=== PATIENT | female | born 1950 | race Caucasian/White ===

== ENCOUNTER → 2017-03-07 | Outpatient (CLI) | payer OTHER ==
--- NOTE | 2017-03-07 14:32 | DIAGNOSTIC IMAGING REPORT ---
MRI OF THE LUMBAR SPINE WITHOUT IV CONTRAST CLINICAL HISTORY: Chronic low back pain. Perineal pain. COMPARISON STUDY: No priors. TECHNIQUE: MRI of the lumbar spine is performed utilizing various T1 and T2-weighted sequences in the axial and sagittal planes. IV contrast was not administered for this examination. FINDINGS: Lumbar spine: Marrow signal intensity is heterogeneous throughout. Vertebral body height is maintained throughout the lumbar spine. There is a mild chronic anterior wedge compression deformity of T12. There is 4 mm of anterolisthesis at L4-L5. Minimal anterolisthesis is also seen at L3-L4. Alignment is otherwise preserved. The transverse and spinous processes are intact as visualized. There is no evidence of spondylolysis. No destructive bony lesion is suspected. Findings suggest previous right hemilaminectomy at L5 and S1. Intervertebral discs: Degenerative disc desiccation is seen throughout the lumbar region. Moderate loss of height is identified at L3-L4. Only mild loss of height is seen at the remaining lumbar levels. Spinal cord: The visualized spinal cord is normal in morphology and signal intensity. The conus medullaris terminates at the level of L3. The nerve roots of the cauda equina are normal in morphology. L1-L2: Unremarkable. L2-L3: There is minimal posterior disc bulge with annular fissure. The central canal and neural foramina are widely patent. L3-L4: There is broad-based posterior disc bulge. In conjunction with hypertrophy of the ligamentum flavum and minimal anterolisthesis there is mild acquired compromise of the central canal at this level with a minimum AP diameter of 7.5 mm. There is mild bilateral subarticular stenosis. Facet arthropathy is of no consequence. The neural foramina are patent. L4-L5: There is posterior disc bulge with annular fissure. There is no significant acquired compromise of the central canal at this level. Facet arthropathy causes minimal bilateral neural foraminal stenosis. L5-S1: A facet synovial cyst arising from the left facet measures approximately 8 mm as seen on axial image #19. This effaces the left aspect of the thecal sac at L5, and impinges on the transiting left-sided nerve roots. The central canal is clear at the L5-S1 level. Facet arthropathy causes moderate left and minimal right neural foraminal stenosis at this level. No significant disc disease is seen. Sacrum: There are bilateral sacral insufficiency fractures. A Tarlov cyst at the level of S1-S2 measures 1.6 cm. Soft tissues: There is fatty atrophy of the paraspinous muscular tear. Bilateral ovarian follicles measure up to 1.7 cm. There is stool filling the rectosigmoid colon. IMPRESSION: 1. There are bilateral sacral insufficiency fractures with associated marrow edema. 2. Findings suggest previous right hemilaminectomy at L5 and S1. 3. Lumbosacral spondylosis as above. There is mild to moderate acquired compromise of the central canal at L3-L4. 4. A synovial cyst effaces the left aspect of the thecal sac at L5 and impinges on the transiting left-sided nerve roots. 5. See above discussion for detailed level by level analysis. 6. There is a chronic compression fracture of T12. 7. There are bilateral cystic foci in the pelvis, likely within the ovaries. This is an abnormal finding in this age group. Followup with a pelvic ultrasound is recommended for further assessment. Dictated: 03/07/2017 2:07 PM Transcribed: 03/07/2017 2:31 PM [facility] Electronically signed by: Miles Tan M.D. 03/07/2017 2:34 PM Dictated Date/Time: 03/07/2017 2:07 PM
== END | disposition home or self-care (01) ==
LOC: C.MRIBC 12:27
PROVIDERS: ATTEND Pain Medicine Interventional Pain Medicine
DX: M47.27 Other spondylosis with radiculopathy, lumbosacral region (principal); M53.3 Sacrococcygeal disorders, not elsewhere classified; M71.38 Other bursal cyst, other site

== ENCOUNTER 2025-03-05 11:10 | Inpatient (IN) ==
[2025-03-05] MEDS: SODIUM CHLORIDE 0.9% 500 ML IV ONE ×2 (11:47→12:54)
[2025-03-05 11:49] LABS: iSTAT Creatinine 0.6 mg/dl (0.6-1.3); iSTAT Hemoglobin 14.6 g/dl (12.0-16.0); iSTAT Ionized Calcium 1.05 mmol/l (1.12-1.32); iSTAT Potassium 3.2 mmol/L (3.3-5.0)
[2025-03-05 11:52] LABS: Hemoglobin 14.1 g/dl (12.0-16.0); Mean Corpuscular Hemoglobin 30.7 pg (25.0-34.0); Mean Corpuscular Hgb Conc 37.1 g/dL (32.0-36.0); Mean Corpuscular Volume 82.8 fL (80.0-100.0); Mean Platelet Volume 8.3 fL (9.4-12.4); Platelet Count 411 K/uL (130-400); RDW Coefficient of Variation 11.8 % (11.5-14.5); RDW Standard Deviation 35.2 fL (36.4-46.3); Red Blood Count 4.59 M/uL (4.20-5.40); White Blood Count 10.92 K/ul (4.8-10.8)
[2025-03-05] MEDS: OPTIRAY 320 125ml IV ONE (12:00)
[2025-03-05 12:24] LABS: Albumin Globulin Ratio 1.5 (0.9-2); Albumin Level 4.2 gm/dl (3.4-5.0); BUN Creatinine Ratio 27.3 (10-20); Bilirubin,Total 0.6 mg/dl (0.2-1.0); Calcium 8.6 mg/dl (8.6-10.3); Creatinine Clr Calc Pharmacy 84.6 ml/min; Globulin 2.8 gm/dl (2.5-4.0); Potassium 3.3 mmol/L (3.5-5.1); Troponin I High Sensitivity 20.5 pg/ml (0-14)
--- NOTE | 2025-03-05 12:25 | CT Scan Report ---
CT head/brain wo con CLINICAL HISTORY: Neuro deficit, acute, stroke suspected. TECHNIQUE: Multiple axial CT images of the head were obtained without contrast. A dose lowering tech nique was utilized adhering to the principles of ALARA. COMPARISON: None FINDINGS: No intracranial hemorrhage seen. No mass effect or midline shift. There is mild prominence of the ventricles out of proportion to the sulci, cerebral atrophy versus normal pressure hydrocephal us. There are mild chronic small vessel ischemic changes. No skull fractures seen. Visualized paranas al sinuses and mastoid air cells are clear. IMPRESSION: No acute findings. ACT 112: Negative or not required by law. The above report was generated using voice recognition software. It may contain grammatical, syntax o r spelling errors. Electronically signed by: Kody Ventura M.D. 03/05/2025 12:24 PM
[2025-03-05 12:34] LABS: Partial Thromboplastin Ratio 1.1; Partial Thromboplastin Time 29 Seconds (21-31); Prothrombin Time 10.8 Seconds (9.0-12.0)
--- NOTE | 2025-03-05 12:35 | CT Scan Report ---
CT angio neck with con, CT angio head w con CLINICAL HISTORY: stroke like sx, confusion. COMPARISON STUDY: None TECHNIQUE: Following the IV administration of 120 of Optiray, CT angiogram of the neck and brain was performed from the aortic arch to the skull base. Images are reviewed in the axial, sagittal, and cor onal planes. 3-D MIPS images are created and assessed. IV contrast was administered without complicat ion. All measurements were calculated based on NASCET criteria. A dose lowering technique was utiliz ed adhering to the principles of ALARA. CT DOSE: 1117.1 mGy.cm FINDINGS: There are minimal carotid bulb calcifications. No significant narrowing or occlusion seen a t the common or internal carotid arteries bilaterally. Left vertebral artery is dominant and the righ t vertebral artery is diminutive beyond PICA. No significant narrowing or occlusion seen at the verte bral arteries bilaterally. Basilar artery is widely patent. Anterior, middle, and posterior cerebral arteries are patent bilaterally. The cerebral venous sinuses opacify normally. IMPRESSION: No significant arterial narrowing or occlusion seen at the neck or brain. ACT 112: Negative or not required by law. The above report was generated using voice recognition software. It may contain grammatical, syntax o r spelling errors. Electronically signed by: Kody Ventura M.D. 03/05/2025 12:32 PM
--- NOTE | 2025-03-05 12:47 | Emergency Department Note ---
Impression & Plan Weakness, Acute hyponatremia, Leukocytosis, Elevated troponin, Hypokalemia ED Provider Note NAME: ALEKSANDAR FRANK AGE: 74 SEX: F : 1950 ARRIVES VIA: Walk-In INFORMANT: [Patient] ED PROVIDER(S): [Miles Arellano MD] CHIEF COMPLAINT: Stroke symptoms HISTORY OF PRESENT ILLNESS: The patient is a 74-year-old female whose had progressive symptoms for years to months although, in the last few days, things have markedly worsened. As per the , the patient's ability to answer questions has decreased over the last few days, her strength has decreased to the point where she can no longer stand on her own-she was able to walk around on her own just a few days ago. He states the weakness is definitely bilateral. Additionally, she has had urinary incontinence since yesterday. Because of the sudden worsening of her situation, she was brought for evaluation. No reported trauma, no fever. No cough or congestion. Patient does not have chest pain or abdominal pain. No history of previous CVA. PMHx/PSHx/Social Hx: See Below PHYSICAL EXAM: GENERAL: Patient is in no acute distress. HEENT: No acute trauma, normocephalic atraumatic, mucous membranes moist, no nasal congestion. NECK: No stridor, no adenopathy, no meningismus, trachea is midline. LUNGS: Clear to auscultation bilaterally, no wheeze, no rhonchi, breath sounds equal. HEART: Without murmurs gallops or rubs, regular rate and rhythm. ABDOMEN: Soft, nontender, no peritonitis. EXTREMITIES: No cyanosis, full range of motion of all the joints without pain or difficulty. NEUROLOGIC: Subtle right facial droop that resolves when asked to smile. No speech slur. No upper extremity drift or cerebellar dysfunction. The right leg does seem weaker than the left but both legs are clearly weak. SKIN: No jaundice, no diaphoresis. DIFFERENTIAL DIAGNOSIS: Electrolyte imbalance, stroke, intracranial bleeding, UTI, dehydration, among others. EMERGENCY DEPARTMENT PROCEDURES: MEDICAL DECISION MAKING: There is a very mild leukocytosis, this could be consistent with infection or the stress of her current situation. There was a normal hemoglobin. Platelet count slightly high at 411. There was no coagulopathy. Sodium was quite low at 116. Potassium was low at 3.2. No concerning liver enzyme elevation. ECG showed a sinus tachycardia, no ischemia. Cardiac enzyme testing x 1 was slightly elevated. This troponin elevation could be secondary to cardiac injury or chest mismatch given her current presentation. Urinalysis showed some dehydration, no obvious infection. Brain CT showed no acute bleed or mass effect. CT angio of the head and neck were performed, there was no significant stenosis, no clot. On exam, the patient had a very subtle right facial droop but this cleared with smiling. There was no speech slur. Certainly, the acute diffuse weakness and mental decline noted by family is likely from the severe hyponatremia. The patient was given IV saline for hydration and to help correct the hyponatremia. Given the profound weakness, given her mental status change, given the severe hyponatremia, admission is warranted. I spoke with the patient and her . I spoke to case management, the on- call hospitalist was consulted. Prior/Outside records/notes reviewed: None ECG per my interpretation: Indication was weakness. ECG shows a sinus tachycardia with a rate of 106. There is some baseline artifact seen. 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 There is no acute ST elevation, no PVCs. The QTc is 483. Continuous Cardiac Monitoring per my interpretation: An order was placed for continuous cardiac monitoring. The monitor shows a rate of 102 with sinus tachycardia. Imaging/x-ray results per my interpretation: Chest x-ray shows some chronic change, no pneumonia or CHF. Chronic Medical/Social conditions affecting care: Advanced age. Care/Management discussed with: Case management, the on-call hospitalist. Level of care consideration(s): After review of the information above and other included data: --I believe the patient requires escalation of care to admission DISPOSITION: Admission Past Med/Surg History Problem List (Updated 03/05/25 @ 15:35 by Miles Arellano MD) Hypokalemia (Acute) Elevated troponin (Acute) Leukocytosis (Acute) Acute hyponatremia (Acute) Weakness (Acute) Hyponatremia Rapidly progressive weakness Metabolic encephalopathy Acute hyponatremia Medical History Encounter for pre-operative examination Anxiety Depression Surgical History Hx of left cataract extraction History of colonoscopy S/P laminectomy "mid back" S/P tonsillectomy Family History Sister FHx: breast cancer Mother Breast cancer Family/Other Depression requiring ECT Grandmother (Paternal) Alzheimer disease Brother Ankylosing spondylitis Other No family history of adverse response to anesthesia Social History Smoking Status: Never smoker Second Hand Exposure: No; Do You Dip or Chew Tobacco: No; Hx Alcohol Use: No Hx Substance Use: No Preferred Language: Romanian Communication Ability: Effective 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 Beliefs That Will Affect Care: None Current Living Situation: Spouse Assistive Devices: Glasses Allergies Allergies Allergy/AdvReac Type Severity Reaction Status Date / Time No Known Allergies Allergy Verified 03/05/25 13:18 Home Meds Home Medications Medication Instructions Recorded Confirmed aripiprazole 5 mg tablet 5 mg PO QAM 05/29/24 03/05/25 desvenlafaxine succinate 100 mg 100 mg PO QAM 05/29/24 03/05/25 tablet,extended release 24 hr (Pristiq) mirtazapine 45 mg tablet 45 mg PO HS 05/29/24 03/05/25 berberine chloride 500 mg capsule 500 mg PO DAILY 03/05/25 03/05/25 cephalexin 500 mg capsule 500 mg PO QID 03/05/25 03/05/25 cholecalciferol (vitamin D3) 25 25 mcg PO DAILY 03/05/25 03/05/25 mcg (1,000 unit) tablet (Vitamin D3) cinnamon bark 500 mg capsule 500 mg PO DAILY 03/05/25 03/05/25 (Cinnamon) collagen,hydrolysate 500 mg-biotin 1 cap PO DAILY 03/05/25 03/05/25 800 mcg-ascorbic acid 50 mg capsule (Collagen 1500 Plus C) cyclosporine 0.05 % eye drops in a 1 drp ophthalmic (eye) BID 03/05/25 03/05/25 dropperette loteprednol etabonate 0.5 % eye See Rx Instructions .Route .COMPLEX 03/05/25 03/05/25 drops,suspension omega 3 350 mg-dha 235 mg-epa 90 1 cap PO DAILY 03/05/25 03/05/25 mg-fish oil 597 mg capsule,delay rel ([place]-3) raloxifene 60 mg tablet 60 mg PO QAM 03/05/25 03/05/25 resveratrol 50 mg capsule 50 mg PO DAILY 03/05/25 03/05/25 vitamin K2 40 mcg tablet 40 mcg PO DAILY 03/05/25 03/05/25 Results & Data (ED) Vital Signs Vital Signs - 24 hr 03/05/25 11:11 03/05/25 11:46 03/05/25 11:48 Temperature 37.1 C Temperature Source Temporal Artery Scan Pulse Rate 112 H Pulse Rate [Apical] 103 H Pulse Strength Normal Respiratory Rate 18 23 Respiratory Effort / Characteristics Non-Labored Spontaneous Respiratory Depth Normal Respiratory Pattern Regular Blood Pressure 151/89 H Blood Pressure [Left Arm] 152/87 H Blood Pressure Mean 109 Blood Pressure Mean [Left Arm] 108 Blood Pressure Position Sitting Pulse Oximetry 93 97 Oxygen Delivery Method Room Air Room Air Room Air Sepsis Recent Fever Within 48 Hours No Sepsis New/Unexplained Change in Mental Status No Sepsis Action Taken by Nursing No Action Required 03/05/25 11:48 03/05/25 12:20 03/05/25 12:29 Temperature Temperature Source Pulse Rate 103 H 104 H Pulse Rate [Apical] Pulse Strength Respiratory Rate 22 16 Respiratory Effort / Characteristics Respiratory Depth Respiratory Pattern Blood Pressure Blood Pressure [Left Arm] Blood Pressure Mean Blood Pressure Mean [Left Arm] Blood Pressure Position Pulse Oximetry Oxygen Delivery Method Room Air Sepsis Recent Fever Within 48 Hours Sepsis New/Unexplained Change in Mental Status Sepsis Action Taken by Nursing 03/05/25 12:30 03/05/25 12:32 03/05/25 12:43 Temperature Temperature Source Pulse Rate 104 H 104 H Pulse Rate [Apical] Pulse Strength Respiratory Rate 18 Respiratory Effort / Characteristics Respiratory Depth Respiratory Pattern Blood Pressure 150/87 H Blood Pressure [Left Arm] Blood Pressure Mean 101 Blood Pressure Mean [Left Arm] Blood Pressure Position Pulse Oximetry Oxygen Delivery Method Sepsis Recent Fever Within 48 Hours Sepsis New/Unexplained Change in Mental Status Sepsis Action Taken by Nursing 03/05/25 13:00 03/05/25 13:18 03/05/25 13:27 Temperature Temperature Source Pulse Rate 101 H 101 H 102 H Pulse Rate [Apical] Pulse Strength Respiratory Rate 27 H 19 Respiratory Effort / Characteristics Respiratory Depth Respiratory Pattern Blood Pressure 161/93 H Blood Pressure [Left Arm] Blood Pressure Mean 107 Blood Pressure Mean [Left Arm] Blood Pressure Position Pulse Oximetry Oxygen Delivery Method Sepsis Recent Fever Within 48 Hours Sepsis New/Unexplained Change in Mental Status Sepsis Action Taken by Nursing 03/05/25 13:30 03/05/25 14:00 03/05/25 14:12 Temperature Temperature Source Pulse Rate 98 H Pulse Rate [Apical] Pulse Strength Respiratory Rate 16 Respiratory Effort / Characteristics Respiratory Depth Respiratory Pattern Blood Pressure 147/82 H 146/80 H Blood Pressure [Left Arm] Blood Pressure Mean 96 97 Blood Pressure Mean [Left Arm] Blood Pressure Position Pulse Oximetry Oxygen Delivery Method Room Air Sepsis Recent Fever Within 48 Hours Sepsis New/Unexplained Change in Mental Status Sepsis Action Taken by Nursing 03/05/25 14:30 03/05/25 14:30 Temperature Temperature Source Pulse Rate 97 H Pulse Rate [Apical] Pulse Strength Respiratory Rate 22 Respiratory Effort / Characteristics Respiratory Depth Respiratory Pattern Blood Pressure 145/86 H Blood Pressure [Left Arm] Blood Pressure Mean 102 Blood Pressure Mean [Left Arm] Blood Pressure Position Pulse Oximetry Oxygen Delivery Method Sepsis Recent Fever Within 48 Hours Sepsis New/Unexplained Change in Mental Status Sepsis Action Taken by Longterm Medications Current Medication List: was personally reviewed by me Laboratory Data Attestation: I reviewed the patient's lab results. 03/05/25 11:30 03/05/25 11:30 Lab Results 03/05/25 03/05/25 03/05/25 Range/Units 11:30 11:32 11:37 WBC 10.92 H (4.8-10.8) K/ul RBC 4.59 (4.20-5.40) M/uL Hgb 14.1 (12.0-16.0) g/dl POC Hgb 14.6 (12.0-16.0) g/dl Hct 38.0 (37.0-47.0) % POC Hct 43 (37-47) % MCV 82.8 (80.0-100.0) fL MCH 30.7 (25.0-34.0) pg MCHC 37.1 H (32.0-36.0) g/dL RDW Std Deviation 35.2 L (36.4-46.3) fL RDW Coeff of Esperanza 11.8 (11.5-14.5) % Plt Count 411 H (130-400) K/uL MPV 8.3 L (9.4-12.4) fL PT 10.8 (9.0-12.0) Seconds INR 1.0 (0.9-1.1) APTT 29 (21-31) Seconds PTT Ratio 1.1 POC Sodium 116 L* (135-144) mmol/L Sodium 117 L* (136-145) mmol/L POC Potassium 3.2 L (3.3-5.0) mmol/L Potassium 3.3 L (3.5-5.1) mmol/L POC Chloride 80 L (101-112) mmol/L Chloride 82 L (98-107) mmol/L Carbon Dioxide 25 (21-32) mmol/L POC Total CO2 24 (24-31) mmol/L Anion Gap 10 (3-11) POC Anion Gap 17.0 (16-25) mmol/L POC BUN 15 (7-18) mg/dl BUN 15 (6-23) mg/dl Creatinine 0.55 L (0.6-1.2) mg/dl POC Creatinine 0.6 (0.6-1.3) mg/dl Est Cr Clr Drug Dosing 84.6 ml/min eGFR 94.94 BUN/Creatinine Ratio 27.3 H (10-20) Glucose 124 H (70-99(Fasting)) mg/dl POC Glucose 134 H (70-99) mg/dl POC Glucose (other) 125 H (70-99) mg/dl Osmolality Cancelled Calcium 8.6 (8.6-10.3) mg/dl POC Ioniz Calcium Dayana 1.05 L (1.12-1.32) mmol/l Magnesium 2.0 (1.7-2.4) mg/dl Total Bilirubin 0.6 (0.2-1.0) mg/dl AST 71 H (13-39) U/L ALT 49 (7-52) U/L Alkaline Phosphatase 61 (34-104) U/L Troponin I High Sens 20.5 H (0-14) pg/ml Total Protein 7.0 (6.0-8.3) gm/dl Albumin 4.2 (3.4-5.0) gm/dl Globulin 2.8 (2.5-4.0) gm/dl Albumin/Globulin Ratio 1.5 (0.9-2) Urine Color Urine Appearance (Clear) Urine pH (4.5-7.5) Ur Specific [place] (1.000-1.030) Urine Protein (Negative) Urine Glucose (UA) (Negative) Urine Ketones (Negative) Urine Blood (Negative) Urine Nitrite (Negative) Urine Bilirubin (Negative) Urine Urobilinogen (Negative) Ur Leukocyte Esterase (Negative) Urine WBC (Auto) (0-5) /hpf Urine RBC (Auto) (0-2) /hpf U Hyaline Cast (Auto) (0-2) /lpf U Epithel Cells (Auto) (0-2) /hpf Urine Bacteria (Auto) (None Seen) Urine Osmolality (500-800) mOsm/kg Ur Random Sodium mmol/L Urine Comment 03/05/25 03/05/25 Range/Units 12:26 13:05 WBC (4.8-10.8) K/ul RBC (4.20-5.40) M/uL Hgb (12.0-16.0) g/dl POC Hgb (12.0-16.0) g/dl Hct (37.0-47.0) % POC Hct (37-47) % MCV (80.0-100.0) fL MCH (25.0-34.0) pg MCHC (32.0-36.0) g/dL RDW Std Deviation (36.4-46.3) fL RDW Coeff of [place]peranza (11.5-14.5) % Plt Count (130-400) K/uL MPV (9.4-12.4) fL PT (9.0-12.0) Seconds INR (0.9-1.1) APTT (21-31) Seconds PTT Ratio POC Sodium (135-144) mmol/L Sodium (136-145) mmol/L POC Potassium (3.3-5.0) mmol/L Potassium (3.5-5.1) mmol/L POC Chloride (101-112) mmol/L Chloride (98-107) mmol/L Carbon Dioxide (21-32) mmol/L POC Total CO2 (24-31) mmol/L Anion Gap (3-11) POC Anion Gap (16-25) mmol/L POC BUN (7-18) mg/dl BUN (6-23) mg/dl Creatinine (0.6-1.2) mg/dl POC Creatinine (0.6-1.3) mg/dl Est Cr Clr Drug Dosing ml/min eGFR BUN/Creatinine Ratio (10-20) Glucose (70-99(Fasting)) mg/dl POC Glucose (70-99) mg/dl POC Glucose (other) (70-99) mg/dl Osmolality 243 L Calcium (8.6-10.3) mg/dl POC Ioniz Calcium [place] (1.12-1.32) mmol/l Magnesium (1.7-2.4) mg/dl Total Bilirubin (0.2-1.0) mg/dl AST (13-39) U/L ALT (7-52) U/L Alkaline Phosphatase (34-104) U/L Troponin I High Sens (0-14) pg/ml Total Protein (6.0-8.3) gm/dl Albumin (3.4-5.0) gm/dl Globulin (2.5-4.0) gm/dl Albumin/Globulin Ratio (0.9-2) Urine Color Yellow Urine Appearance Clear (Clear) Urine pH 7.0 (4.5-7.5) Ur Specific [place] > 1.045 H (1.000-1.030) Urine Protein 1+ H (Negative) Urine Glucose (UA) Negative (Negative) Urine Ketones 1+ H (Negative) Urine Blood Negative (Negative) Urine Nitrite Negative (Negative) Urine Bilirubin Negative (Negative) Urine Urobilinogen Negative (Negative) Ur Leukocyte Esterase Negative (Negative) Urine WBC (Auto) 0-5 (0-5) /hpf Urine RBC (Auto) 3-5 H (0-2) /hpf U Hyaline Cast (Auto) 0-2 (0-2) /lpf U Epithel Cells (Auto) 0-2 (0-2) /hpf Urine Bacteria (Auto) None Seen (None Seen) Urine Osmolality 396 L (500-800) mOsm/kg Ur Random Sodium 27 mmol/L Urine Comment Administered Medications Discontinued Medications Sodium Chloride (Nss) 500 mls @ 999 mls/hr IV .Q31M ONE Stop: 03/05/25 12:11 Last Infusion: 03/05/25 13:16 Dose: Infused Documented By: Admin: 03/05/25 11:47 Dose: 999 mls/hr Documented By: JOSS Sodium Chloride (Nss) 500 mls @ 999 mls/hr IV .Q31M ONE Stop: 03/05/25 13:12 Last Admin: 03/05/25 12:54 Dose: 999 mls/hr Documented By: JOSS Ioversol (Optiray 320 125ml) 118 ml IV ONCE ONE Stop: 03/05/25 12:01 Last Admin: 03/05/25 12:00 Dose: 118 ml Documented By: COURTNEY Imaging Data Radiologist's Impression: Chest X-Ray 03/05/25 11:36 XR chest 1V portable CLINICAL HISTORY: stroke alert COMPARISON STUDY: None FINDINGS: Heart size and pulmonary vasculature are normal. There is a small hiatal hernia. No consolidation or pleural effusion. No pneumothorax. There is a possible small amount of contrast infiltration at the soft tissues of the right arm. IMPRESSION: Possible contrast infiltration at the right arm. No other acute findings seen. ACT 112: Negative or not required by law. Electronically signed by: Kody Ventura M.D. 03/05/2025 12:[address] 03/05/25 11:36 CT head/brain wo con CLINICAL HISTORY: Neuro deficit, acute, stroke suspected. TECHNIQUE: Multiple axial CT images of the head were obtained without contrast. A dose lowering technique was utilized adhering to the principles of ALARA. COMPARISON: None FINDINGS: No intracranial hemorrhage seen. No mass effect or midline shift. There is mild prominence of the ventricles out of proportion to the sulci, cerebral atrophy versus normal pressure hydrocephalus. There are mild chronic small vessel ischemic changes. No skull fractures seen. Visualized paranasal sinuses and mastoid air cells are clear. IMPRESSION: No acute findings. ACT 112: Negative or not required by law. The above report was generated using voice recognition software. It may contain grammatical, syntax or spelling errors. Electronically signed by: Kody Ventura M.D. 03/05/2025 12:24 PM Head CTA 03/05/25 11:40 CT angio neck with con, CT angio head w con CLINICAL HISTORY: stroke like sx, confusion. COMPARISON STUDY: None TECHNIQUE: Following the IV administration of 120 of Optiray, CT angiogram of the neck and brain was performed from the aortic arch to the skull base. Images are reviewed in the axial, sagittal, and coronal planes. 3-D MIPS images are created and assessed. IV contrast was administered without complication. All measurements were calculated based on NASCET criteria. A dose lowering technique was utilized adhering to the principles of ALARA. CT DOSE: 1117.1 mGy.cm FINDINGS: There are minimal carotid bulb calcifications. No significant narrowing or occlusion seen at the common or internal carotid arteries bilaterally. Left vertebral artery is dominant and the right vertebral artery is diminutive beyond PICA. No significant narrowing or occlusion seen at the vertebral arteries bilaterally. Basilar artery is widely patent. Anterior, middle, and posterior cerebral arteries are patent bilaterally. The cerebral venous sinuses opacify normally. IMPRESSION: No significant arterial narrowing or occlusion seen at the neck or brain. ACT 112: Negative or not required by law. The above report was generated using voice recognition software. It may contain grammatical, syntax or spelling errors. Electronically signed by: Kody Ventura M.D. 03/05/2025 12:32 PM Neck CTA 03/05/25 11:40 CT angio neck with con, CT angio head w con CLINICAL HISTORY: stroke like sx, confusion. COMPARISON STUDY: None TECHNIQUE: Following the IV administration of 120 of Optiray, CT angiogram of the neck and brain was performed from the aortic arch to the skull base. Images are reviewed in the axial, sagittal, and coronal planes. 3-D MIPS images are created and assessed. IV contrast was administered without complication. All measurements were calculated based on NASCET criteria. A dose lowering technique was utilized adhering to the principles of ALARA. CT DOSE: 1117.1 mGy.cm FINDINGS: There are minimal carotid bulb calcifications. No significant narrowing or occlusion seen at the common or internal carotid arteries bilaterally. Left vertebral artery is dominant and the right vertebral artery is diminutive beyond PICA. No significant narrowing or occlusion seen at the vertebral arteries bilaterally. Basilar artery is widely patent. Anterior, middle, and posterior cerebral arteries are patent bilaterally. The cerebral venous sinuses opacify normally. IMPRESSION: No significant arterial narrowing or occlusion seen at the neck or brain. ACT 112: Negative or not required by law. The above report was generated using voice recognition software. It may contain grammatical, syntax or spelling errors. Electronically signed by: Kody Ventura M.D. 03/05/2025 12:32 PM Discharge Plan Visit Data Chief Complaint: Stroke/CVA Symptoms Stated Complaint: MOBILITY ISSUES,SPEAKING ISSUES ED Provider: Miles Arellano Discharge Problem: Weakness, Acute hyponatremia, Leukocytosis, Elevated troponin, Hypokalemia Patient Disposition: Admitted As Inpatient Condition: Fair Forms Stand Alone Forms: My [facility] Prescriptions Prescriptions: No Action aripiprazole 5 mg Tablet 5 mg PO QAM desvenlafaxine succinate [Pristiq] 100 mg Tablet Extended Release 24 Hr 100 mg PO QAM mirtazapine 45 mg Tablet 45 mg PO HS cephalexin 500 mg capsule 500 mg PO QID raloxifene 60 mg tablet 60 mg PO QAM loteprednol etabonate 0.5 % drops,suspension See Rx Instructions .ROUTE .COMPLEX Rx Instructions: Start Date 02/12/25. Instill 1 drop into left eye QID x 7 days; then TID x 7 days; then BID x 7 days; then QD x 7 days cyclosporine 0.05 % dropperette 1 drp ophthalmic (eye) BID cinnamon bark [Cinnamon] 500 mg Capsule 500 mg PO DAILY cholecalciferol (vitamin D3) [Vitamin D3] 25 mcg (1,000 unit) Tablet 25 mcg PO DAILY resveratrol 50 mg Capsule 50 mg PO DAILY vitamin K2 40 mcg Tablet 40 mcg PO DAILY [place]-3 350 mg-235 mg- 90 mg-597 mg Capsule,Delayed Release(Dr/Ec) 1 cap PO DAILY Collagen 1500 Plus C 500 mg-800 mcg- 50 mg Capsule 1 cap PO DAILY berberine chloride 500 mg Capsule 500 mg PO DAILY Referrals Referrals: Lenin Price MD [Primary Care Provider] - Discharge Problem: Leukocytosis Qualifiers: Leukocytosis type: unspecified Qualified Code(s): D72.829 - Elevated white blood cell count, unspecified
--- NOTE | 2025-03-05 13:00 | XRay Report ---
XR chest 1V portable CLINICAL HISTORY: stroke alert COMPARISON STUDY: None FINDINGS: Heart size and pulmonary vasculature are normal. There is a small hiatal hernia. No consoli dation or pleural effusion. No pneumothorax. There is a possible small amount of contrast infiltratio n at the soft tissues of the right arm. IMPRESSION: Possible contrast infiltration at the right arm. No other acute findings seen. ACT 112: Negative or not required by law. Electronically signed by: Kody Ventura M.D. 03/05/2025 12:59 PM
[2025-03-05 13:31] LABS: Appearance Urine Clear (Clear); Bacteria Urine Automated None Seen (None Seen); Bilirubin Urine Negative (Negative); Blood Urine Negative (Negative); Cast Urine Automated 0-2 /lpf (0-2); Color Urine Yellow; Epithelial Cell Urine Auto 0-2 /hpf (0-2); Glucose Urine UA Negative (Negative); Ketones Urine 1+ (Negative); Leukocyte Esterase Urine Negative (Negative); Nitrite Urine Negative (Negative); Protein Urine 1+ (Negative); Specific Gravity Urine > 1.045 (1.000-1.030); Urobilinogen Urine Negative (Negative); WBC Urine Automated 0-5 /hpf (0-5)
--- NOTE | 2025-03-05 13:37 | History & Physical Report ---
Date of Service March 05, 2025 Assessment & Plan (1) Acute hyponatremia: (2) Metabolic encephalopathy: (3) Rapidly progressive weakness: (4) Hyponatremia: (5) Depression: (6) Anxiety: Plan This is a 74-year-old female who has a significant past medical history of prediabetes, senile osteoporosis, major depressive disorder and generalized anxiety disorder who presents to ED secondary to worsening generalized weakness, increased confusion and bladder incontinence over the last 36 hours. #Acute Hyponatremia #Metabolic encephalopathy admit to PCU Discussed with nephrology Dr. Alcantar, will obtain BMP stat now, FR 1500ml for now Start [id number] bid pt has had 1L of IVF in ED unknown cause, possible SIADH?, no new medication changes, has been stable on psych meds for years, last sodium in 2023 was unremarkable urine sodium 27, urine osm 396, serum osm 243 obtain blood cultures, r/o infection, cxr, ua okay Repeat Na at 1500 showed sodium increase from 116-[address] 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 There are mild chronic small vessel ischemic changes will obtain MRI Pt has parkinsonian features and reports shuffling gait initially along with tremors that have now progressed to inability to walk ? parkinsonism She certainly also has sx that could make NPH favorable will consult neurology for their assistance in appropriate diagnosis await MRI results will obtain TSH, Vitamin b12, Nh3, rpr #Hypokalemia: K 3.3, replete #Elevated troponin: suspect demand in setting of acute illness, will trend for completeness #Healing posterior calcaneal fracture, left she has seen [facility] on 02/27, had XR started on keflex through 03/09 due to L soft tissue swelling reports improvement of sx after initiation of antibiotics, will compete course #Depression with anxiety pt has battled this for several years established with Dr. Dickson in 2016, initially multiple med changes, but has been stable for several years on current regimen on Pristiq, abilify, mirtazapine #DVT ppx: SQ Lovenox DNR/DNI PCP: Albert Dispo: admit to PCU, will need PT/OT evals when sodium levels improved Pt was seen and examined in collaboration with Dr. Hernandez, please see addendum I spent a total of 76 minutes coordinating, documenting and providing care for this patient excluding time spent in the performance of separately billed services or time spent by another provider/QHP. History of Present Illness Chief Complaint: Worsening weakness/confusion. Primary Care Provider: Lenin Price MD This is a 74-year-old female who has a significant past medical history of prediabetes, senile osteoporosis, major depressive disorder and generalized anxiety disorder who presents to ED secondary to worsening generalized weakness, increased confusion and bladder incontinence over the last 36 hours. 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 History is obtained from ED provider, at bedside who is a retired [facility] pediatric surgeon and sister at bedside. It is noted that over the last 18 months patient has had a generalized decline cognition and function. She has been having worsening memory loss, confusion, and general physical decline over the last several months. She has been has noted a crescendo like decline over the last few months. She follows Dr. Dickson for her psych diagnoses. She otherwise does not visit her medical provider other than yearly. Her provides detailed course. She has had no recent illness, change in medication, no recent GI illness. She did see orthopedics on 02/27 due to L foot pain. Imaging showed healing posterior calcaneal stress fracture. There was concern for possible soft tissue swelling and she was started on keflex; however, notes no clear indication of infection. After starting keflex her sx improved. wrote detailed hx regarding changes over the past few years, Approximately 3. She has begun to walk with a shuffling gait at first. She does have some tremor in her hands but tends to occur when using them like buttoning up one of her favorite shirts, that is actually her 's. Her mentation has been becoming markedly worse over the past 6 weeks, but in the past week she struggled to be able to articulate thought and was unable to speak at all. Physically prior to stress fx she was able to ambulate on own, but now having difficulty doing that to the point the is unable to manage her at home. Over the last 36hrs notes progressive decline. At baseline pt can typica lly ambulate with assistance; however today she was not able to walk at all due to leg weakness. She was unable to get off of couch last night that resulted in her losing control of her bladder. She has not had any bowel incontinence. does not feel she has had a fever, diarrhea, n/v. She eats fairly well. She drinks 8-10 8oz bottles daily, approx. Surgical hx includes L4-5 facets resected for hypertrophic osteophytes - early , Partial face lift in , mandibular advancement with b/l osteotomies with metal wire Again follows Dr. Dickson with psych since 2016, initially went through a series of med adjustments but she has been stable on her regimen as of late. Allergies Allergy/AdvReac Type Severity Reaction Status Date / Time No Known Allergies Allergy Verified 03/05/25 13:18 Home Medications Medication Instructions Recorded Confirmed Type aripiprazole 5 mg tablet 5 mg PO QAM 05/29/24 03/05/25 History desvenlafaxine succinate 100 mg 100 mg PO QAM 05/29/24 03/05/25 History tablet,extended release 24 hr (Pristiq) mirtazapine 45 mg tablet 45 mg PO HS 05/29/24 03/05/25 History berberine chloride 500 mg capsule 500 mg PO DAILY 03/05/25 03/05/25 History cephalexin 500 mg capsule 500 mg PO QID 03/05/25 03/05/25 History cholecalciferol (vitamin D3) 25 25 mcg PO DAILY 03/05/25 03/05/25 History mcg (1,000 unit) tablet (Vitamin D3) cinnamon bark 500 mg capsule 500 mg PO DAILY 03/05/25 03/05/25 History (Cinnamon) collagen,hydrolysate 500 mg-biotin 1 cap PO DAILY 03/05/25 03/05/25 History 800 mcg-ascorbic acid 50 mg capsule (Collagen 1500 Plus C) cyclosporine 0.05 % eye drops in a 1 drp ophthalmic (eye) BID 03/05/25 03/05/25 History dropperette loteprednol etabonate 0.5 % eye See Rx Instructions .Route .COMPLEX 03/05/25 03/05/25 History drops,suspension omega 3 350 mg-dha 235 mg-epa 90 1 cap PO DAILY 03/05/25 03/05/25 History mg-fish oil 597 mg capsule,delay rel (Madison-3) raloxifene 60 mg tablet 60 mg PO QAM 03/05/25 03/05/25 History resveratrol 50 mg capsule 50 mg PO DAILY 03/05/25 03/05/25 History vitamin K2 40 mcg tablet 40 mcg PO DAILY 03/05/25 03/05/25 History Past Med/Surg History Problem List (Updated 03/05/25 @ 15:35 by Miles Arellano MD) Hypokalemia (Acute) Elevated troponin (Acute) Leukocytosis (Acute) Acute hyponatremia (Acute) Weakness (Acute) Hyponatremia Rapidly progressive weakness Metabolic encephalopathy Acute hyponatremia Medical History Encounter for pre-operative examination Anxiety Depression Surgical History Hx of left cataract extraction History of colonoscopy S/P laminectomy "mid back" S/P tonsillectomy Family History Sister FHx: breast cancer Mother Breast cancer Family/Other Depression requiring ECT Grandmother (Paternal) Alzheimer disease Brother Ankylosing spondylitis Other No family history of adverse response to anesthesia Social History Smoking Status: Never smoker Second Hand Exposure: No; Do You Dip or Chew Tobacco: No; Hx Alcohol Use: No Hx Substance Use: No Preferred Language: Georgian Communication Ability: Effective Transmission System Operator Required: No Beliefs That Will Affect Care: None Current Living Situation: Spouse Assistive Devices: Glasses Review of Systems Review of Systems: Unobtainable due to cognitive status Physical Exam Physical Exam: please refer to Dr. Hernandez addendum for physical exam findings. Results & Data Results & Data Vital Signs (Past 12 Hours) Vital Signs Temp Pulse Pulse Resp BP BP Pulse Ox 03/05/25 13:00 101 H 161/93 H 03/05/25 12:43 104 H 03/05/25 12:32 104 H 18 03/05/25 12:30 150/87 H 03/05/25 12:29 104 H 16 03/05/25 12:20 103 H 22 03/05/25 11:48 03/05/25 11:48 103 H 23 152/87 H 97 03/05/25 11:46 03/05/25 11:11 37.1 C 112 H 18 151/89 H 93 O2 Del Method 03/05/25 13:00 03/05/25 12:43 03/05/25 12:32 03/05/25 12:30 03/05/25 12:29 03/05/25 12:20 03/05/25 11:48 Room Air 03/05/25 11:48 Room Air 03/05/25 11:46 Room Air 03/05/25 11:11 Room Air Laboratory Results I have independently reviewed and interpreted patient's admitting labs including CBC, CMP, PTT, PT/INR, mag and troponin. Also urine, serum osm studies reviewed, urine sodium Diagnostic Findings Chest X-Ray 03/05/25 11:36 XR chest 1V portable CLINICAL HISTORY: stroke alert COMPARISON STUDY: None FINDINGS: Heart size and pulmonary vasculature are normal. There is a small hiatal hernia. No consolidation or pleural effusion. No pneumothorax. There is a possible small amount of contrast infiltration at the soft tissues of the right arm. IMPRESSION: Possible contrast infiltration at the right arm. No other acute findings seen. ACT 112: Negative or not required by law. Electronically signed by: Kody Ventura M.D. 03/05/2025 12:[address] 03/05/25 11:36 CT head/brain wo con CLINICAL HISTORY: Neuro deficit, acute, stroke suspected. TECHNIQUE: Multiple axial CT images of the head were obtained without contrast. A dose lowering technique was utilized adhering to the principles of ALARA. COMPARISON: None FINDINGS: No intracranial hemorrhage seen. No mass effect or midline shift. There is mild prominence of the ventricles out of proportion to the sulci, cerebral atrophy versus normal pressure hydrocephalus. There are mild chronic small vessel ischemic changes. No skull fractures seen. Visualized paranasal sinuses and mastoid air cells are clear. IMPRESSION: No acute findings. ACT 112: Negative or not required by law. The above report was generated using voice recognition software. It may contain grammatical, syntax or spelling errors. Electronically signed by: Kody Ventura M.D. 03/05/2025 12:24 PM Head CTA 03/05/25 11:40 CT angio neck with con, CT angio head w con CLINICAL HISTORY: stroke like sx, confusion. COMPARISON STUDY: None TECHNIQUE: Following the IV administration of 120 of Optiray, CT angiogram of the neck and brain was performed from the aortic arch to the skull base. Images are reviewed in the axial, sagittal, and coronal planes. 3-D MIPS images are created and assessed. IV contrast was administered without complication. All measurements were calculated based on NASCET criteria. A dose lowering technique was utilized adhering to the principles of ALARA. CT DOSE: 1117.1 mGy.cm FINDINGS: There are minimal carotid bulb calcifications. No significant narrowing or occlusion seen at the common or internal carotid arteries bilaterally. Left vertebral artery is dominant and the right vertebral artery is diminutive beyond PICA. No significant narrowing or occlusion seen at the vertebral arteries bilaterally. Basilar artery is widely patent. Anterior, middle, and posterior cerebral arteries are patent bilaterally. The cerebral venous sinuses opacify normally. IMPRESSION: No significant arterial narrowing or occlusion seen at the neck or brain. ACT 112: Negative or not required by law. The above report was generated using voice recognition software. It may contain grammatical, syntax or spelling errors. Electronically signed by: Kody Ventura M.D. 03/05/2025 12:32 PM Neck CTA 03/05/25 11:40 CT angio neck with con, CT angio head w con CLINICAL HISTORY: stroke like sx, confusion. COMPARISON STUDY: None TECHNIQUE: Following the IV administration of 120 of Optiray, CT angiogram of the neck and brain was performed from the aortic arch to the skull base. Images are reviewed in the axial, sagittal, and coronal planes. 3-D MIPS images are created and assessed. IV contrast was administered without complication. All measurements were calculated based on NASCET criteria. A dose lowering technique was utilized adhering to the principles of ALARA. CT DOSE: 1117.1 mGy.cm FINDINGS: There are minimal carotid bulb calcifications. No significant narrowing or occlusion seen at the common or internal carotid arteries bilaterally. Left vertebral artery is dominant and the right vertebral artery is diminutive beyond PICA. No significant narrowing or occlusion seen at the vertebral arteries bilaterally. Basilar artery is widely patent. Anterior, middle, and posterior cerebral arteries are patent bilaterally. The cerebral venous sinuses opacify normally. IMPRESSION: No significant arterial narrowing or occlusion seen at the neck or brain. ACT 112: Negative or not required by law. The above report was generated using voice recognition software. It may contain grammatical, syntax or spelling errors. Electronically signed by: Kody Ventura M.D. 03/05/2025 12:32 PM Medications Administered Medication List Discontinued Medications Sodium Chloride (Nss) 500 mls @ 999 mls/hr IV .Q31M ONE Stop: 03/05/25 12:11 Last Infusion: 03/05/25 13:16 Dose: Infused Documented By: Admin: 03/05/25 11:47 Dose: 999 mls/hr Documented By: JOSS Sodium Chloride (Nss) 500 mls @ 999 mls/hr IV .Q31M ONE Stop: 03/05/25 13:12 Last Admin: 03/05/25 12:54 Dose: 999 mls/hr Documented By: JOSS Ioversol (Optiray 320 125ml) 118 ml IV ONCE ONE Stop: 03/05/25 12:01 Last Admin: 03/05/25 12:00 Dose: 118 ml Documented By: COURTNEY ECG Additional Comments: I have independently reviewed and interpreted patient's admitting EKG which revealed: ST 106, no st or t wave change, qtc 483ms COVID-19 Results Results COVID-19 Adm Lab Results: RBC 4.59 M/uL (4.20-5.40) 03/05/25 WBC 10.92 K/ul (4.8-10.8) H 03/05/25 Hgb 14.1 g/dl (12.0-16.0) 03/05/25 Hct 38.0 % (37.0-47.0) 03/05/25 Plt Count 411 K/uL (130-400) H 03/05/25 Na 119 mmol/L (136-145) L* 03/05/25 Cl 86 mmol/L (98-107) L 03/05/25 CO2 24 mmol/L (21-32) 03/05/25 Anion Gap 9 (3-11) 03/05/25 BUN 12 mg/dl (6-23) 03/05/25 Creatinine 0.49 mg/dl (0.6-1.2) L 03/05/25 BUN/Creatinine Ratio 24.5 (10-20) H 03/05/25 Glucose Level 92 mg/dl (70-99(Fasting)) 03/05/25 Ca 7.8 mg/dl (8.6-10.3) L 03/05/25 Total Bilirubin 0.6 mg/dl (0.2-1.0) 03/05/25 AST/SGOT 71 U/L (13-39) H 03/05/25 ALT/SGPT 49 U/L (7-52) 03/05/25 Alkaline Phosphatase 61 U/L (34-104) 03/05/25 Total Protein 7.0 gm/dl (6.0-8.3) 03/05/25 Albumin 4.2 gm/dl (3.4-5.0) 03/05/25 Globulin 2.8 gm/dl (2.5-4.0) 03/05/25 Albumin/Globulin Ratio 1.5 (0.9-2) 03/05/25 PTT 29 Seconds (21-31) 03/05/25 INR 1.0 (0.9-1.1) 03/05/25 Chest X-Ray 03/05/25 Code Status & VTE Plan Code Status DNR/DNI Supervising Physician Co-Signing Physician Notes Attending Addendum: Case reviewed with the advanced practitioner. I have personally performed a history and physical examination on the patient. I have reviewed the advanced practitioner's documentation on the date of service referenced in note, and I agree with, and take responsibility for the plan of care. please refer to her notes for full details patient seen and examined, records reviewed by myself as well on exam, patient seen resting in bed, comfortable awake, alert, oriented x 1-2 pleasantly confused no chest pain, dyspnea, palpitations, dizziness no headache, nausea, abdominal pain, nausea no other symptoms VS noted and reviewed oriented x 1-2 , not in distress, speaks in sentences with no effort nor accessory muscle use normal rate, regular rhythm, no murmurs clear breath sounds bilaterally non distended, soft, nontender no bipedal edema, erythema, warmth pleasantly confused, no other new neuro deficits all labs, imaging noted and reviewed ASSESSMENT AND PLAN> CONFUSION, GENERALIZED WEAKNESS, HYPONATREMIA PROGRESSIVE COGNITIVE DECLINE possible underlying Parkinson Disease, r/o NPH Brain MRI ordered TSH, Vit D, Vit B12, Lyme screen Neuro consulted discussed with Nephro possible SIADH recommend IV NSS, Lasix, Urea serial Na checks Ethan Hernandez MD other diagnoses and plan of care as per advanced practitioner's notes I spent a total of 50 minutes coordinating, documenting, and providing care for this patient, excluding time spent in the performance of separately billed services or time spent by another provider/QHP. Ethan Hernandez MD
[2025-03-05 15:56] LABS: BUN Creatinine Ratio 24.5 (10-20); Calcium 7.8 mg/dl (8.6-10.3); Troponin I High Sensitivity 24.1 pg/ml (0-14)
[2025-03-05 16:13] LABS: Thyroid Stimulating Hormone 1.268 uIu/ml (0.300-4.500)
[2025-03-05] MEDS ORDERED: ONDANSETRON INJ 2 MG/ML 2 ML VIAL IV PRN (16:22)
[2025-03-05] MEDS ORDERED: POLYETHYLENE (MIRALAX) 17 GM PACK PO PRN (16:22)
[2025-03-05] MEDS: SODIUM CHLORIDE 0.9% 500 ML IV SCH (16:40)
[2025-03-05] MEDS: POTASSIUM CHLORIDE CRTAB 20 MEQ TABCR PO STA (16:42)
[2025-03-05] MEDS: cephALEXin 500 MG CAP PO SCH (18:00)
[2025-03-05] MEDS: POTASSIUM CHLORIDE CRTAB 20 MEQ TABCR PO ONE (21:13)
[2025-03-05] MEDS: UREA (UREA-NA) 15 GM PACK PO SCH (21:14)
[2025-03-05] MEDS: ENOXAPARIN INJ 40 MG/0.4 ML SYR SQ SCH (21:14)
[2025-03-05] MEDS: MIRTAZAPINE SOLTAB 15 MG PO SCH (21:15)
[2025-03-05] MEDS: SODIUM CHLORIDE 1 GM TABLET PO SCH (21:17)
[2025-03-05] MEDS: FUROSEMIDE INJ 20 MG/2 ML VIAL IV SCH (21:20)
[2025-03-05] MEDS: ARTIFICIAL TEARS OP SCH (21:20)
[2025-03-05 21:25] LABS: BUN Creatinine Ratio 28.1 (10-20); Calcium 7.8 mg/dl (8.6-10.3); Creatinine Clr Calc Pharmacy 72.7 ml/min; Potassium 3.7 mmol/L (3.5-5.1)
[2025-03-05 21:33] LABS: Troponin I High Sensitivity 18.5 pg/ml (0-14)
--- NOTE | 2025-03-05 23:00 | Magnetic Resonance Report ---
Exam(s): MRI HEAD Without Contrast EXAM: MR Head Without Intravenous Contrast CLINICAL HISTORY: unable to walk, incontinence, r/o NPH. TECHNIQUE: Magnetic resonance images of the head/brain without intravenous contrast in multiple planes. COMPARISON: No relevant prior studies available. FINDINGS: Brain: Abnormal T2 signal in the deep cerebral white matter is consistent with small vessel ischemic/degenerative changes. The cerebral and cerebellar sulci are prominent consistent with brain atrophy. Diffusion-weighted imaging is negative for acute or subacute infarct. No hemorrhage. Ventricles: The ventricles are enlarged. The AVLI is 0.56. The Arce index is 0.37. The callosal angle is 88 degrees. Bones/joints: Unremarkable. No acute fracture. Sinuses: Unremarkable as visualized. No acute sinusitis. Mastoid air cells: Unremarkable as visualized. No mastoid effusion. Orbits: Unremarkable as visualized. IMPRESSION: 1. No evidence of acute or subacute infarct. 2. The ventricles are prominent in size with indices suggesting ventricular enlargement out of proportion to significant underlying atrophy; however, these indices are nonspecific. Please correlate with clinical symptoms. CSF flow studies may be performed for further analysis/confirmation. 3. Chronic small vessel ischemic/degenerative changes. 4. Chronic cerebral and cerebellar atrophy. Electronically signed by: Albert Almazan MD 03/05/25 23:00 PM
[2025-03-06 00:22] LABS: BUN Creatinine Ratio 39.7 (10-20); Creatinine Clr Calc Pharmacy 73.9 ml/min; Potassium 3.6 mmol/L (3.5-5.1)
[2025-03-06 00:29] LABS: Troponin I High Sensitivity 15.9 pg/ml (0-14)
[2025-03-06 03:51] LABS: BUN Creatinine Ratio 36.8 (10-20); Calcium 8.1 mg/dl (8.6-10.3); Creatinine Clr Calc Pharmacy 68.4 ml/min; Potassium 3.9 mmol/L (3.5-5.1)
[2025-03-06 06:31] LABS: Basophils # (auto) 0.04 K/uL (0.00-0.20); Basophils % (auto) 0.4 %; Eosinophils # (auto) 0.14 K/uL (0.00-0.50); Eosinophils % (auto) 1.5 %; Hemoglobin 13.9 g/dl (12.0-16.0); Immature Granulocytes # (auto) 0.11 K/uL (0.01-0.20); Immature Granulocytes % (auto) 1.2 %; Lymphocytes # (auto) 2.04 K/uL (1.20-3.40); Lymphocytes % (auto) 22.2 %; Mean Corpuscular Hemoglobin 30.7 pg (25.0-34.0); Mean Corpuscular Hgb Conc 36.6 g/dL (32.0-36.0); Mean Corpuscular Volume 83.9 fL (80.0-100.0); Mean Platelet Volume 8.2 fL (9.4-12.4); Monocytes # (auto) 0.79 K/uL (0.11-0.59); Monocytes % (auto) 8.6 %; Neutrophils # (auto) 6.07 K/uL (1.40-6.50); Neutrophils % (auto) 66.1 %; Platelet Count 403 K/uL (130-400); RDW Coefficient of Variation 12.1 % (11.5-14.5); RDW Standard Deviation 36.5 fL (36.4-46.3); Red Blood Count 4.53 M/uL (4.20-5.40); White Blood Count 9.19 K/ul (4.8-10.8)
[2025-03-06 06:49] LABS: Albumin Globulin Ratio 1.5 (0.9-2); Albumin Level 3.9 gm/dl (3.4-5.0); BUN Creatinine Ratio 32.8 (10-20); Bilirubin,Total 0.5 mg/dl (0.2-1.0); Calcium 8.4 mg/dl (8.6-10.3); Creatinine Clr Calc Pharmacy 80.2 ml/min; Globulin 2.6 gm/dl (2.5-4.0); Magnesium 2.2 mg/dl (1.7-2.4); Potassium 3.9 mmol/L (3.5-5.1); Total Protein 6.5 gm/dl (6.0-8.3)
[2025-03-06] MEDS: RALOXIFENE HCL 60 MG TAB PO SCH (08:30)
[2025-03-06] MEDS: ARIPiprazole 5 MG TAB PO SCH (08:31)
[2025-03-06] MEDS: CHOLECALCIFEROL 25 MCG (1000 UNITS) TAB PO SCH (08:31)
[2025-03-06] MEDS: POTASSIUM CHLORIDE CRTAB 20 MEQ TABCR PO SCH (08:32)
[2025-03-06] MEDS ORDERED: POTASSIUM CHLORIDE CRTAB 20 MEQ TABCR PO SCH (09:00)
--- NOTE | 2025-03-06 09:31 | Neurology Consultation ---
Date of Consultation March 06, 2025 Assessment & Plan (1) Metabolic encephalopathy: Suspect abrupt changes in mentation attributable to electrolyte disturbances mainly hyponatremia Agree with continued current therapies Monitor serum sodium closely Recommend Psych consultation to address need of current medications seeking discontinuation of as many psych medications as tolerable There is concern of possible medication induced electrolyte changes Recommend discontinue OTC supplements Continue frequent neurological assessments Obtain stat CT brain without contrast for any acute neurological decline Continue to monitor/control blood pressure & blood glucose Continue to monitor telemetry closely Continue to monitor renal and hepatic function, agree with continued metabolic workup Continue to monitor for s/s of infection Ok from neurology perspective for VTE prophylaxis PT/OT/SLT to eval and treat Telehealth Consultation Telehealth Information Telehealth Information: I performed this visit using a real-time telehealth connection between my location and the patients location ([facility]). After connecting through interactive tele-video, patient was identified by name and date of and/or wristband check.Patient (or authorized healthcare aircraft sales representative) was informed that this was a telemedicine visit and it was being conducted confidentially over secure lines. My office door was closed and no one else was present in the room with me.Patient (or authorized healthcare aircraft sales representative) provided consent to proceed with the visit, expressed an understanding of privacy and security of the telemedicine visit, and gave permission to have a hospital aircraft sales representative in the room in order to assist with the visit and to conduct portions of the visit, as needed. I informed the patient (or authorized healthcare aircraft sales representative) that I reviewed their record and presented the opportunity for them to ask any questions regarding the visit today. The patient agreed to participate. History of Present Illness Reason for Consultation: Worsening mentation Requesting Physician: Dr. Gilmore Attending Physician: Patrice Gilmore MD History of Present Illness 74year old right handed female presented to ER, via , with concern of acute decline in mentation, urinary incontinence and increased lethargy gait dysfunction, She had reported been consuming an increased amount of water above her normal over at least the last week or two but cannot completely confirm if had or had not been longer. She had unfortunately suddenly developed signs of injury to her left heal in January and has since demonstrated decreased ambulation from what reports as already baseline minimal ambulation. She has been on antimicrobial tx due to concern of soft tissue erythema at left heal. Apparently she has had a steady cognitive decline over the last several years and notably had more of an acute decline in the last days leading up to hospitalization. is concerned that she has been on several psych medications for the last 3 years as he is aware there have been no changes to her medications and some of which have potential to elicit hyponatremia. does report significant improvement in her mentation just since admission yesterday. She has undergone a CT brain without contrast, personally reviewed, revealing no overt evidence of hemorrhage or acute intracranial pathology. Appreciate substantial atrophy and enlargement of ventricles not out of proportion or concerning for NPH, although may qualify via Arce Index. CT angiographic studies of head and neck, also personally reviewed today, reveal no overt evidence of large vessel occlusion or significant/flow limiting stenosis. MRI brain without overt evidence of acute intracranial pathology. I have performed televideo consultation. She is sleeping but able to be easily awakened and will follow simple commands readily. She is able to name objects on televideo monitor. Neurological exam is non lateralizing/nonfocal in terms of motor strength and coordination noting BLE weakness. Allergies Allergy/AdvReac Type Severity Reaction Status Date / Time No Known Allergies Allergy Verified 03/05/25 13:18 Home Medications Medication Instructions Recorded Confirmed Type aripiprazole 5 mg tablet 5 mg PO QAM 05/29/24 03/05/25 History desvenlafaxine succinate 100 mg 100 mg PO QAM 05/29/24 03/05/25 History tablet,extended release 24 hr (Pristiq) mirtazapine 45 mg tablet 45 mg PO HS 05/29/24 03/05/25 History berberine chloride 500 mg capsule 500 mg PO DAILY 03/05/25 03/05/25 History cephalexin 500 mg capsule 500 mg PO QID 03/05/25 03/05/25 History cholecalciferol (vitamin D3) 25 25 mcg PO DAILY 03/05/25 03/05/25 History mcg (1,000 unit) tablet (Vitamin D3) cinnamon bark 500 mg capsule 500 mg PO DAILY 03/05/25 03/05/25 History (Cinnamon) collagen,hydrolysate 500 mg-biotin 1 cap PO DAILY 03/05/25 03/05/25 History 800 mcg-ascorbic acid 50 mg capsule (Collagen 1500 Plus C) cyclosporine 0.05 % eye drops in a 1 drp ophthalmic (eye) BID 03/05/25 03/05/25 History dropperette loteprednol etabonate 0.5 % eye See Rx Instructions .Route .COMPLEX 03/05/25 0 03/05/25 History drops,suspension omega 3 350 mg-dha 235 mg-epa 90 1 cap PO DAILY 03/05/25 03/05/25 History mg-fish oil 597 mg capsule,delay rel ([place]-3) raloxifene 60 mg tablet 60 mg PO QAM 03/05/25 03/05/25 History resveratrol 50 mg capsule 50 mg PO DAILY 03/05/25 03/05/25 History vitamin K2 40 mcg tablet 40 mcg PO DAILY 03/05/25 03/05/25 History Patient History Medical History Encounter for pre-operative examination Anxiety Depression Surgical History Hx of left cataract extraction History of colonoscopy S/P laminectomy "mid back" S/P tonsillectomy Family History Sister FHx: breast cancer Mother Breast cancer Family/Other Depression requiring ECT Grandmother (Paternal) Alzheimer disease Brother Ankylosing spondylitis Other No family history of adverse response to anesthesia Social History Smoking Status: Never smoker Second Hand Exposure: No; Do You Dip or Chew Tobacco: No; Hx Alcohol Use: No Hx Substance Use: No Preferred Language: Lao Communication Ability: Effective Fountain Operator Required: No Beliefs That Will Affect Care: None Current Living Situation: Spouse Feels Safe at Home: Yes Safety Concerns: Feels Safe At This Time Assistive Devices: Glasses and Walker Physical Exam Neurological Examination: Mental Status: Awake and alert to self and some of situation. Fluency naming repetition appear grossly intact. Affect remains appropriate. CN testing: I: Deferred II: Reports no changes in visual acuity III/IV/: No evidence of gaze preference, hippus, nystagmus or roving eye movements V: Facial sensation reportedly grossly intact to light touch bilaterally VII: Facial movements appear without evidence of asymmetry VIII: Hearing appears grossly intact to loud voice bilaterally IX/X: Palate is unable to be accurately assessed via telemedicine XI: Shoulder shrug appears symmetric/ grossly intact bilaterally XII: Tongue protrudes midline without evidence of biting Motor exam: Strength appears grossly intact/symmetric BUE Decrease motor strength bilateral lower extremities Sensory: Sensation is reportedly grossly intact throughout Coordination: No apparent evidence of dysmetria or dysdiadochokinesia Reflexes: Deferred Gait: Deferred Results & Data Vital Signs (Past 12 Hours) Vital Signs Temp Pulse Pulse Resp BP Pulse Ox O2 Del Method 03/06/25 07:49 37.0 C 91 H 18 117/71 95 Room Air 03/06/25 03:12 37.6 C H 101 H 16 135/73 95 Room Air 03/05/25 23:00 36.8 C 86 16 126/72 96 Room Air 03/05/25 22:01 94 H Laboratory Results Abnormal lab results 03/05/25 03/05/25 03/05/25 Range/Units 11:30 11:32 11:37 WBC 10.92 H (4.8-10.8) K/ul MCHC 37.1 H (32.0-36.0) g/dL RDW Std Deviation 35.2 L (36.4-46.3) fL Plt Count 411 H (130-400) K/uL MPV 8.3 L (9.4-12.4) fL [place] # (Auto) (0.11-0.59) K/uL POC Sodium 116 L* (135-144) mmol/L Sodium 117 L* (136-145) mmol/L POC Potassium 3.2 L (3.3-5.0) mmol/L Potassium 3.3 L (3.5-5.1) mmol/L POC Chloride 80 L (101-112) mmol/L Chloride 82 L (98-107) mmol/L BUN (6-23) mg/dl Creatinine 0.55 L (0.6-1.2) mg/dl BUN/Creatinine Ratio 27.3 H (10-20) Glucose 124 H (70-99(Fasting)) mg/dl POC Glucose 134 H (70-99) mg/dl POC Glucose (other) 125 H (70-99) mg/dl Osmolality (280-300) mOsm/kg Calcium (8.6-10.3) mg/dl POC Ioniz Calcium [place] 1.05 L (1.12-1.32) mmol/l Ionized Calcium (1.12-1.32) mmol/L AST 71 H (13-39) U/L Troponin I High Sens 20.5 H (0-14) pg/ml 25-OH Vitamin D Total (30-100) ng/ml Ur Specific [place] (1.000-1.030) Urine Protein (Negative) Urine Ketones (Negative) Urine RBC (Auto) (0-2) /hpf Urine Osmolality (500-800) mOsm/kg 03/05/25 03/05/25 03/05/25 Range/Units 12:26 13:05 15:13 WBC (4.8-10.8) K/ul MCHC (32.0-36.0) g/dL RDW Std Deviation (36.4-46.3) fL Plt Count (130-400) K/uL MPV (9.4-12.4) fL [place] # (Auto) (0.11-0.59) K/uL POC Sodium (135-144) mmol/L Sodium 119 L* (136-145) mmol/L POC Potassium (3.3-5.0) mmol/L Potassium 3.0 L (3.5-5.1) mmol/L POC Chloride (101-112) mmol/L Chloride 86 L (98-107) mmol/L BUN (6-23) mg/dl Creatinine 0.49 L (0.6-1.2) mg/dl BUN/Creatinine Ratio 24.5 H (10-20) Glucose (70-99(Fasting)) mg/dl POC Glucose (70-99) mg/dl POC Glucose (other) (70-99) mg/dl Osmolality 243 L (280-300) mOsm/kg Calcium 7.8 L (8.6-10.3) mg/dl POC Ioniz Calcium [place] (1.12-1.32) mmol/l Ionized Calcium (1.12-1.32) mmol/L AST (13-39) U/L Troponin I High Sens 24.1 H (0-14) pg/ml 25-OH Vitamin D Total (30-100) ng/ml Ur Specific [place] > 1.045 H (1.000-1.030) Urine Protein 1+ H (Negative) Urine Ketones 1+ H (Negative) Urine RBC (Auto) 3-5 H (0-2) /hpf Urine Osmolality 396 L (500-800) mOsm/kg 03/05/25 03/05/25 03/06/25 Range/Units 19:57 23:37 03:20 WBC (4.8-10.8) K/ul MCHC (32.0-36.0) g/dL RDW Std Deviation (36.4-46.3) fL Plt Count (130-400) K/uL MPV (9.4-12.4) fL [place] # (Auto) (0.11-0.59) K/uL POC Sodium (135-144) mmol/L Sodium 119 L* 122 L 124 L (136-145) mmol/L POC Potassium (3.3-5.0) mmol/L Potassium (3.5-5.1) mmol/L POC Chloride (101-112) mmol/L Chloride 88 L 89 L 90 L (98-107) mmol/L BUN 25 H 25 H (6-23) mg/dl Creatinine (0.6-1.2) mg/dl BUN/Creatinine Ratio 28.1 H 39.7 H 36.8 H (10-20) Glucose (70-99(Fasting)) mg/dl POC Glucose (70-99) mg/dl POC Glucose (other) (70-99) mg/dl Osmolality (280-300) mOsm/kg Calcium 7.8 L 8.0 L 8.1 L (8.6-10.3) mg/dl POC Ioniz Calcium [place] (1.12-1.32) mmol/l Ionized Calcium (1.12-1.32) mmol/L AST (13-39) U/L Troponin I High Sens 18.5 H D 15.9 H (0-14) pg/ml 25-OH Vitamin D Total (30-100) ng/ml Ur Specific [place] (1.000-1.030) Urine Protein (Negative) Urine Ketones (Negative) Urine RBC (Auto) (0-2) /hpf Urine Osmolality (500-800) mOsm/kg 03/06/25 Range/Units 06:13 WBC (4.8-10.8) K/ul MCHC 36.6 H (32.0-36.0) g/dL RDW Std Deviation (36.4-46.3) fL Plt Count 403 H (130-400) K/uL MPV 8.2 L (9.4-12.4) fL [place] # (Auto) 0.79 H (0.11-0.59) K/uL POC Sodium (135-144) mmol/L Sodium 124 L (136-145) mmol/L POC Potassium (3.3-5.0) mmol/L Potassium (3.5-5.1) mmol/L POC Chloride (101-112) mmol/L Chloride 91 L (98-107) mmol/L BUN (6-23) mg/dl Creatinine 0.58 L (0.6-1.2) mg/dl BUN/Creatinine Ratio 32.8 H (10-20) Glucose 101 H (70-99(Fasting)) mg/dl POC Glucose (70-99) mg/dl POC Glucose (other) (70-99) mg/dl Osmolality (280-300) mOsm/kg Calcium 8.4 L (8.6-10.3) mg/dl POC Ioniz Calcium [place] (1.12-1.32) mmol/l Ionized Calcium 1.07 L (1.12-1.32) mmol/L AST 46 H (13-39) U/L Troponin I High Sens (0-14) pg/ml 25-OH Vitamin D Total 20.9 L (30-100) ng/ml Ur Specific [place] (1.000-1.030) Urine Protein (Negative) Urine Ketones (Negative) Urine RBC (Auto) (0-2) /hpf Urine Osmolality (500-800) mOsm/kg Diagnostic Findings Chest X-Ray 03/05/25 11:36 XR chest 1V portable CLINICAL HISTORY: stroke alert COMPARISON STUDY: None FINDINGS: Heart size and pulmonary vasculature are normal. There is a small hiatal hernia. No consolidation or pleural effusion. No pneumothorax. There is a possible small amount of contrast infiltration at the soft tissues of the right arm. IMPRESSION: Possible contrast infiltration at the right arm. No other acute findings seen. ACT 112: Negative or not required by law. Electronically signed by: Kody Ventura M.D. 03/05/2025 12:[address] 03/05/25 11:36 CT head/brain wo con CLINICAL HISTORY: Neuro deficit, acute, stroke suspected. TECHNIQUE: Multiple axial CT images of the head were obtained without contrast. A dose lowering technique was utilized adhering to the principles of ALARA. COMPARISON: None FINDINGS: No intracranial hemorrhage seen. No mass effect or midline shift. There is mild prominence of the ventricles out of proportion to the sulci, cerebral atrophy versus normal pressure hydrocephalus. There are mild chronic small vessel ischemic changes. No skull fractures seen. Visualized paranasal sinuses and mastoid air cells are clear. IMPRESSION: No acute findings. ACT 112: Negative or not required by law. The above report was generated using voice recognition software. It may contain grammatical, syntax or spelling errors. Electronically signed by: Kody Ventura M.D. 03/05/2025 12:24 PM Head CTA 03/05/25 11:40 CT angio neck with con, CT angio head w con CLINICAL HISTORY: stroke like sx, confusion. COMPARISON STUDY: None TECHNIQUE: Following the IV administration of 120 of Optiray, CT angiogram of the neck and brain was performed from the aortic arch to the skull base. Images are reviewed in the axial, sagittal, and coronal planes. 3-D MIPS images are created and assessed. IV contrast was administered without complication. All measurements were calculated based on NASCET criteria. A dose lowering technique was utilized adhering to the principles of ALARA. CT DOSE: 1117.1 mGy.cm FINDINGS: There are minimal carotid bulb calcifications. No significant narrowing or occlusion seen at the common or internal carotid arteries bilaterally. Left vertebral artery is dominant and the right vertebral artery is diminutive beyond PICA. No significant narrowing or occlusion seen at the vertebral arteries bilaterally. Basilar artery is widely patent. Anterior, middle, and posterior cerebral arteries are patent bilaterally. The cerebral venous sinuses opacify normally. IMPRESSION: No significant arterial narrowing or occlusion seen at the neck or brain. ACT 112: Negative or not required by law. The above report was generated using voice recognition software. It may contain grammatical, syntax or spelling errors. Electronically signed by: Kody Ventura M.D. 03/05/2025 12:32 PM Neck CTA 03/05/25 11:40 CT angio neck with con, CT angio head w con CLINICAL HISTORY: stroke like sx, confusion. COMPARISON STUDY: None TECHNIQUE: Following the IV administration of 120 of Optiray, CT angiogram of the neck and brain was performed from the aortic arch to the skull base. Images are reviewed in the axial, sagittal, and coronal planes. 3-D MIPS images are created and assessed. IV contrast was administered without complication. All measurements were calculated based on NASCET criteria. A dose lowering technique was utilized adhering to the principles of ALARA. CT DOSE: 1117.1 mGy.cm FINDINGS: There are minimal carotid bulb calcifications. No significant narrowing or occlusion seen at the common or internal carotid arteries bilaterally. Left vertebral artery is dominant and the right vertebral artery is diminutive beyond PICA. No significant narrowing or occlusion seen at the vertebral arteries bilaterally. Basilar artery is widely patent. Anterior, middle, and posterior cerebral arteries are patent bilaterally. The cerebral venous sinuses opacify normally. IMPRESSION: No significant arterial narrowing or occlusion seen at the neck or brain. ACT 112: Negative or not required by law. The above report was generated using voice recognition software. It may contain grammatical, syntax or spelling errors. Electronically signed by: Kody Ventura M.D. 03/05/2025 12:32 PM Brain MRI 03/05/25 13:39 Exam(s): MRI HEAD Without Contrast EXAM: MR Head Without Intravenous Contrast CLINICAL HISTORY: unable to walk, incontinence, r/o NPH. TECHNIQUE: Magnetic resonance images of the head/brain without intravenous contrast in multiple planes. COMPARISON: No relevant prior studies available. FINDINGS: Brain: Abnormal T2 signal in the deep cerebral white matter is consistent with small vessel ischemic/degenerative changes. The cerebral and cerebellar sulci are prominent consistent with brain atrophy. Diffusion-weighted imaging is negative for acute or subacute infarct. No hemorrhage. Ventricles: The ventricles are enlarged. The AVLI is 0.56. The Arce index is 0.37. The callosal angle is 88 degrees. Bones/joints: Unremarkable. No acute fracture. Sinuses: Unremarkable as visualized. No acute sinusitis. Mastoid air cells: Unremarkable as visualized. No mastoid effusion. Orbits: Unremarkable as visualized. IMPRESSION: 1. No evidence of acute or subacute infarct. 2. The ventricles are prominent in size with indices suggesting ventricular enlargement out of proportion to significant underlying atrophy; however, these indices are nonspecific. Please correlate with clinical symptoms. CSF flow studies may be performed for further analysis/confirmation. 3. Chronic small vessel ischemic/degenerative changes. 4. Chronic cerebral and cerebellar atrophy. Electronically signed by: Albert Almazan MD 03/05/25 23:00 PM Medications Administered Home Medications Medication Instructions Recorded Confirmed Last Taken aripiprazole 5 mg tablet 5 mg PO QAM 05/29/24 03/05/25 06/20/24 04:00 desvenlafaxine succinate 100 mg 100 mg PO QAM 05/29/24 03/05/25 06/20/24 04:00 tablet,extended release 24 hr (Pristiq) mirtazapine 45 mg tablet 45 mg PO HS 05/29/24 03/05/25 06/19/24 berberine chloride 500 mg capsule 500 mg PO DAILY 03/05/25 03/05/25 Unknown cephalexin 500 mg capsule 500 mg PO QID 03/05/25 03/05/25 Unknown cholecalciferol (vitamin D3) 25 25 mcg PO DAILY 03/05/25 03/05/25 Unknown mcg (1,000 unit) tablet (Vitamin D3) cinnamon bark 500 mg capsule 500 mg PO DAILY 03/05/25 03/05/25 Unknown (Cinnamon) collagen,hydrolysate 500 mg-biotin 1 cap PO DAILY 03/05/25 03/05/25 Unknown 800 mcg-ascorbic acid 50 mg capsule (Collagen 1500 Plus C) cyclosporine 0.05 % eye drops in a 1 drp ophthalmic (eye) BID 03/05/25 03/05/25 Unknown dropperette loteprednol etabonate 0.5 % eye See Rx Instructions .Route .COMPLEX 03/05/25 03/05/25 Unknown drops,suspension omega 3 350 mg-dha 235 mg-epa 90 1 cap PO DAILY 03/05/25 03/05/25 Unknown mg-fish oil 597 mg capsule,delay rel ([place]-3) raloxifene 60 mg tablet 60 mg PO QAM 03/05/25 03/05/25 Unknown resveratrol 50 mg capsule 50 mg PO DAILY 03/05/25 03/05/25 Unknown vitamin K2 40 mcg tablet 40 mcg PO DAILY 03/05/25 03/05/25 Unknown Active Medications Generic Name Dose Route Start Last Admin Trade Name Michelle AGUERORo Reason Stop Dose Admin Aripiprazole 5 mg 03/06/25 09:00 03/06/25 08:31 Aripiprazole 5 Mg Tab PO 04/05/25 08:59 5 mg QAM NA Administration Artificial Tears 1 drops 03/05/25 21:00 03/06/25 08:31 Artificial Tears OP 04/04/25 20:59 1 drops BID NA Administration Cephalexin HCl 500 mg 03/05/25 17:00 03/06/25 08:31 Cephalexin 500 Mg Cap PO 03/09/25 16:59 500 mg QID NA Administration Protocol Enoxaparin Sodium 40 mg 03/05/25 21:00 03/05/25 21:14 Enoxaparin Inj 40 Mg/0.4 Ml Syr SQ 04/04/25 20:59 40 mg HS NA Administration Furosemide 20 mg 03/05/25 21:00 03/06/25 05:46 Furosemide Inj 20 Mg/2 Ml Vial IV 04/04/25 20:59 20 mg Q8H NA Administration Mirtazapine 45 mg 03/05/25 21:00 03/05/25 21:15 Mirtazapine Soltab 15 Mg PO 04/04/25 20:59 45 mg HS NA Administration Miscellaneous 1 each 03/06/25 00:00 03/06/25 01:33 Desvenlafaxine Succinate [Pristiq] 100 Mg Tablet Extended Releas--Order Awaiting Action N/A 04/05/25 00:00 Not Given QS NA Miscellaneous 1 each 03/06/25 00:00 03/06/25 01:33 Loteprednol Etabonate 0.5 % Drops,Suspension--Order Awaiting Action N/A 04/05/25 00:00 Not Given QS NA Potassium Chloride 40 meq 03/06/25 09:00 03/06/25 08:32 Potassium Chloride Crtab 20 Meq Tabcr PO 04/05/25 08:59 40 meq BID NA Administration Raloxifene HCl 60 mg 03/06/25 09:00 03/06/25 08:30 Raloxifene Hcl 60 Mg Tab PO 04/05/25 08:59 60 mg QAM NA Administration Sodium Chloride 1 gm 03/05/25 21:00 03/06/25 08:31 Sodium Chloride 1 Gm Tablet PO 04/04/25 20:59 1 gm BID NA Administration Urea 15 gm 03/05/25 21:00 03/06/25 08:32 Urea (Urea-Na) 15 Gm Pack PO 04/04/25 20:59 15 gm BID NA Administration Vitamin D 25 mcg 03/06/25 09:00 03/06/25 08:31 Cholecalciferol 25 Mcg (1000 Units) Tab PO 04/05/25 08:59 25 mcg DAILY NA Administration
--- NOTE | 2025-03-06 11:03 | Nephrology Consultation ---
Date of Consultation March 06, 2025 Assessment & Plan (1) Hyponatremia: Acute hyponatremia but cant tell how long it has been progressing. her last BMP from 04/2024 so almost 1 year ago and had na of 135. urine osm 396 urine na 27 and serum osm 243. She appeared Euvolemic and has true hyponatremia with Abnormally high urine osm in the context of very low serum na of 117. 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 Currently na is rising nicely from 117 to 124. are of correction is fine. So continue Current management of Iv lasix with urea and salt tab and kcl and FFR of 1500 ml per day. As per she is feeling much better already. Hyponatremia made her kilcx-tupcwncit-zvclitpi decline worse but she also has underlying issues Change labs to q8hr. one during day and one in evening and then in AM. Making dilute looking urine which is good. check urine osm again today (2) Hypokalemia: Most likely nutritional given Low PO intake of Solid food. Now normal after aggressive Supplement. also with iv lasix she does need kcl--conitnue 40 bid. check q8hr with BMP (3) Rapidly progressive weakness: Plan total time spent 82 mins including addressing labs multiple time of day and communication with primary team. Discussed in detail with at bedside. History of Present Illness Reason for Consultation: Hyponatremia Attending Physician: Patrice Gilmore MD History of Present Illness 74/F with no prior h/o Hyponatremia (reviewed outpt labs--one na of 134 in 2021--last na 135 in ) who is on multiple neuro-psychiatric meds. Came to hospital yesterday with worsening generalized weakness, increased confusion and bladder incontinence over the last 36 hours. 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 at bedside and sister at bedside. Over the last 18 months patient has had a generalized decline in cognition and function. She has had no recent illness, change in medication, no recent GI illness. patient is quite sleepy and most history given By . BMP on admission showed 117. first got NS then became 119. After my involvement--Added iv lasix, Urea and Salt tab and kcl tabs. her k was low at 3. renal function normal. At home it appears she was drinking close to 150 oz per day ( could be more). Her solid food intake is quite low. with above management na is now rising appropriate rate to 125 this AM. Also on FFR 1500 ml . ROS--see HPI. otherwise 12 systems reviewed and negative exam: Awake and alert but sleepy. Can give some history but then eyes close MM moist. Neck supple. NO JVD Chest b/l clear. CVS--RRR. no murmur Ext--No edema. Allergies Allergy/AdvReac Type Severity Reaction Status Date / Time No Known Allergies Allergy Verified 03/05/25 13:18 Home Medications Medication Instructions Recorded Confirmed Type aripiprazole 5 mg tablet 5 mg PO QAM 05/29/24 03/05/25 History desvenlafaxine succinate 100 mg 100 mg PO QAM 05/29/24 03/05/25 History tablet,extended release 24 hr (Pristiq) mirtazapine 45 mg tablet 45 mg PO HS 05/29/24 03/05/25 History berberine chloride 500 mg capsule 500 mg PO DAILY 03/05/25 03/05/25 History cephalexin 500 mg capsule 500 mg PO QID 03/05/25 03/05/25 History cholecalciferol (vitamin D3) 25 25 mcg PO DAILY 03/05/25 03/05/25 History mcg (1,000 unit) tablet (Vitamin D3) cinnamon bark 500 mg capsule 500 mg PO DAILY 03/05/25 03/05/25 History (Cinnamon) collagen,hydrolysate 500 mg-biotin 1 cap PO DAILY 03/05/25 03/05/25 History 800 mcg-ascorbic acid 50 mg capsule (Collagen 1500 Plus C) cyclosporine 0.05 % eye drops in a 1 drp ophthalmic (eye) BID 03/05/25 03/05/25 History dropperette loteprednol etabonate 0.5 % eye See Rx Instructions .Route .COMPLEX 03/05/25 03/05/25 History drops,suspension omega 3 350 mg-dha 235 mg-epa 90 1 cap PO DAILY 03/05/25 03/05/25 History mg-fish oil 597 mg capsule,delay rel ([place]-3) raloxifene 60 mg tablet 60 mg PO QAM 03/05/25 03/05/25 History resveratrol 50 mg capsule 50 mg PO DAILY 03/05/25 03/05/25 History vitamin K2 40 mcg tablet 40 mcg PO DAILY 03/05/25 03/05/25 History Patient History Medical History Encounter for pre-operative examination Anxiety Depression Surgical History Hx of left cataract extraction History of colonoscopy S/P laminectomy "mid back" S/P tonsillectomy Family History Sister FHx: breast cancer Mother Breast cancer Family/Other Depression requiring ECT Grandmother (Paternal) Alzheimer disease Brother Ankylosing spondylitis Other No family history of adverse response to anesthesia Social History Smoking Status: Never smoker Second Hand Exposure: No; Do You Dip or Chew Tobacco: No; Hx Alcohol Use: No Hx Substance Use: No Preferred Language: Persian Communication Ability: Effective Die Engraving Supervisor Required: No Beliefs That Will Affect Care: None Current Living Situation: Spouse Feels Safe at Home: Yes Safety Concerns: Feels Safe At This Time Assistive Devices: Glasses and Walker Results & Data Vital Signs (Past 12 Hours) Vital Signs Temp Pulse Resp BP Pulse Ox O2 Del Method 03/06/25 07:49 37.0 C 91 H 18 117/71 95 Room Air 03/06/25 03:12 37.6 C H 101 H 16 135/73 95 Room Air
[2025-03-06 11:37] LABS: BUN Creatinine Ratio 28.8 (10-20); Calcium 8.1 mg/dl (8.6-10.3); Creatinine Clr Calc Pharmacy 58.2 ml/min; Potassium 3.9 mmol/L (3.5-5.1)
[2025-03-06] MEDS: cycloSPORINE (RESTASIS) OPB SCH (12:33)
--- NOTE | 2025-03-06 13:42 | Hospitalist Progress Note ---
Date of Service March 06, 2025 Assessment & Plan (1) Acute hyponatremia: (2) Metabolic encephalopathy: (3) Rapidly progressive weakness: (4) Hyponatremia: (5) Depression: (6) Anxiety: Plan This is a 74-year-old female who has a significant past medical history of prediabetes, senile osteoporosis, major depressive disorder and generalized anxiety disorder who presents to ED secondary to worsening generalized weakness, increased confusion and bladder incontinence over the last 36 hours. 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 There are mild chronic small vessel ischemic changes -mentation improving with treatment of SIADH -suspect undelrying component of mild cognititive impairment/dementia vs. 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 Dickson in 2016, initially multiple med changes, but has been stable for several years on current regimen -on Pristiq, abilify, mirtazapine at home -suspect likely cause of SIADH -aripiprazole is associated with SIADH as is desvenlafaxine, mirtazapine less so but possible Plan: -psychiatry consult, appreciate recs -decrease aripiprazole dose to 2.5 mg and mirtazapine to 30 mg (from 45mg, very activating dose for nighttime, to assist with sleep wake cycle), desvenlafaxine held at admission, monitor for serotonin withdrawal symptoms I spent a total of 60 minutes in direct patient care, including qles-cw-mcjk time with the patient and/or family, reviewing medical records, ordering and reviewing diagnostic tests, and coordinating care with other healthcare providers. This time includes: history taking, physical examination, medical decision making, counseling, ECG interpretation, imaging interpretation, lab interpretation, orders, and education, excluding time spent in the performance of separately billed services. Admission and Anticipated Discharge Date Admission Date: March 05, 2025 Subjective Patient seen and examined at bedside. present as well. Patient feeling better today, orriented to person and place but not time, still generally confused overall. Discussed case at length with , will pursue tune up of psychiatric medications with a psychiatry consult at this time. Review of Systems Review of Systems: CONSTITUTIONAL: weakness, confusion EYES: Patient denies any visual symptoms. EARS, NOSE, AND THROAT: No difficulties with hearing. No symptoms of rhinitis or sore throat. CARDIOVASCULAR: Patient denies chest pains, palpitations, orthopnea and paroxysmal nocturnal dyspnea. RESPIRATORY: No dyspnea on exertion, no wheezing or cough. GI: No nausea, vomiting, diarrhea, constipation, abdominal pain, hematochezia or melena. : No urinary hesitancy or dribbling. No nocturia or urinary frequency. No abnormal urethral discharge. MUSCULOSKELETAL: No myalgias or arthralgias. NEUROLOGIC: No chronic headaches, no seizures. Patient denies numbness, tingling or weakness. PSYCHIATRIC: Patient denies problems with mood disturbance. No problems with anxiety. ENDOCRINE: No excessive urination or excessive thirst. DERMATOLOGIC: Patient denies any rashes or skin changes. Physical Exam Physical Exam: Gen: A&O 2 NAD HEENT: NCAT, EOMI, not icteric. External ears normal. No rhinorrhea. Moist mucous membranes. Neck: Supple, full range of motion, no observable masses, No meningeal sign. Lungs: No Respiratory distress. CV: tachycardic, regular rhythm Abdomen: Soft, nondistended, No rebound tenderness. MSK: No joint swelling, no redness. Skin: No rashes, petechiae, lesions. Normal color per patient. Neuro: finger to finger touch relatively maintained, no noticable focal deficits Psych: slightly confused, pleasant Results & Data Results & Data Vital Signs (Past 12 Hours) Vital Signs Temp Pulse Resp BP Pulse Ox O2 Del Method 03/06/25 11:40 36.4 C L 90 18 113/71 96 Room Air 03/06/25 07:49 37.0 C 91 H 18 117/71 95 Room Air 03/06/25 03:12 37.6 C H 101 H 16 135/73 95 Room Air Laboratory Results -personally reviewed, Na improved to 127, slightly low ionized calcium at 1.07, vitamin D of 21 on low side Medications Administered Aripiprazole (Aripiprazole 5 Mg Tab) 5 mg PO QAM [facility] Stop: 04/05/25 08:59 Last Admin: 03/06/25 08:31 Dose: 5 mg Documented By: DONY Artificial Tears (Artificial Tears) 1 drops OP BID [facility] Stop: 04/04/25 20:59 Last Admin: 03/06/25 08:31 Dose: 1 drops Documented By: Admin: 03/05/25 21:20 Dose: 1 drops Documented By: ESSIE Cephalexin HCl (Cephalexin 500 Mg Cap) 500 mg PO QID [facility]; Protocol Stop: 03/09/25 16:59 Last Admin: 03/06/25 12:33 Dose: 500 mg Documented By: Admin: 03/06/25 08:31 Dose: 500 mg Documented By: Admin: 03/05/25 21:15 Dose: 500 mg Documented By: Admin: 03/05/25 18:00 Dose: 500 mg Documented By: GILBERT Cyclosporine (Cyclosporine (Restasis)) 1 drops OPB BID [facility] Stop: 04/05/25 11:44 Last Admin: 03/06/25 12:33 Dose: 1 drops Documented By: DONY Enoxaparin Sodium (Enoxaparin Inj 40 Mg/0.4 Ml Syr) 40 mg SQ HS [facility] Stop: 04/04/25 20:59 Last Admin: 03/05/25 21:14 Dose: 40 mg Documented By: ESSIE Furosemide (Furosemide Inj 20 Mg/2 Ml Vial) 20 mg IV Q8H [facility] Stop: 04/04/25 20:59 Last Admin: 03/06/25 12:34 Dose: 20 mg Documented By: Admin: 03/06/25 05:46 Dose: 20 mg Documented By: Admin: 03/05/25 21:20 Dose: 20 mg Documented By: ESSIE Mirtazapine (Mirtazapine Soltab 15 Mg) 45 mg PO HS NA Stop: 04/04/25 20:59 Last Admin: 03/05/25 21:15 Dose: 45 mg Documented By: ESSIE Miscellaneous (Desvenlafaxine Succinate [Pristiq] 100 Mg Tablet Extended Releas--Order Awaiting Action) 1 each N/A QS NA Stop: 04/05/25 00:00 Last Admin: 03/06/25 01:33 Dose: Not Given Documented By: ESSIE Miscellaneous (Loteprednol Etabonate 0.5 % Drops,Suspension--Order Awaiting Action) 1 each N/A QS NA Stop: 04/05/25 00:00 Last Admin: 03/06/25 01:33 Dose: Not Given Documented By: ESSIE Potassium Chloride (Potassium Chloride Crtab 20 Meq Tabcr) 40 meq PO BID NA Stop: 04/05/25 08:59 Last Admin: 03/06/25 08:32 Dose: 40 meq Documented By: DONY Raloxifene HCl (Raloxifene Hcl 60 Mg Tab) 60 mg PO QAM NA Stop: 04/05/25 08:59 Last Admin: 03/06/25 08:30 Dose: 60 mg Documented By: DONY Sodium Chloride (Sodium Chloride 1 Gm Tablet) 1 gm PO BID NA Stop: 04/04/25 20:59 Last Admin: 03/06/25 08:31 Dose: 1 gm Documented By: Admin: 03/05/25 21:17 Dose: 1 gm Documented By: ESSIE Urea (Urea (Urea-Na) 15 Gm Pack) 15 gm PO BID NA Stop: 04/04/25 20:59 Last Admin: 03/06/25 08:32 Dose: 15 gm Documented By: Admin: 03/05/25 21:14 Dose: 15 gm Documented By: ESSIE Vitamin D (Cholecalciferol 25 Mcg (1000 Units) Tab) 25 mcg PO DAILY NA Stop: 04/05/25 08:59 Last Admin: 03/06/25 08:31 Dose: 25 mcg Documented By: DONY
[2025-03-06] MEDS: FOLIC ACID 1 MG TAB PO SCH (15:10)
[2025-03-06] MEDS: THIAMINE HCL 100 MG TAB PO SCH (15:10)
[2025-03-06 16:24] LABS: Calcium 8.6 mg/dl (8.6-10.3); Creatinine Clr Calc Pharmacy 51.7 ml/min; Potassium 4.1 mmol/L (3.5-5.1)
[2025-03-06 21:48] LABS: BUN Creatinine Ratio 39.7 (10-20); Calcium 8.1 mg/dl (8.6-10.3); Creatinine Clr Calc Pharmacy 63.8 ml/min; Potassium 3.9 mmol/L (3.5-5.1)
[2025-03-06] MEDS: MIRTAZAPINE SOLTAB 15 MG PO SCH (22:08)
[2025-03-06 23:12] LABS: BUN Creatinine Ratio 49.3 (10-20); Calcium 8.3 mg/dl (8.6-10.3); Creatinine Clr Calc Pharmacy 63.8 ml/min; Potassium 3.9 mmol/L (3.5-5.1)
--- NOTE | 2025-03-07 04:32 | Electrocardiogram Report ---
Test Reason : Blood Pressure : */* mmHG Vent. Rate : 106 BPM Atrial Rate : 106 BPM P-R Int : 152 ms QRS Dur : 82 ms QT Int : 364 ms P-R-T Axes : 33 -24 4 degrees QTcB Int : 483 ms Sinus tachycardia Possible Left atrial enlargement Inferior infarct , age undetermined Anterior infarct Prolonged QT Abnormal ECG No previous ECGs available Confirmed by Roberto Carlos Escobar ([id number]) on 03/07/2025 4:32:00 AM Referred By: REFERRED SELF Confirmed By: Roberto Carlos Escobar
[2025-03-07 08:12] LABS: Magnesium 2.2 mg/dl (1.7-2.4)
[2025-03-07] MEDS: ARIPiprazole 5 MG TAB PO SCH (08:55)
[2025-03-07 09:13] LABS: BUN Creatinine Ratio 43.3 (10-20); Calcium 8.7 mg/dl (8.6-10.3); Creatinine Clr Calc Pharmacy 77.6 ml/min; Potassium 4.1 mmol/L (3.5-5.1)
--- NOTE | 2025-03-07 10:57 | Nephrology Progress Note ---
Date of Service March 07, 2025 Assessment & Plan (1) Hyponatremia: Plan: chronic hyponatremia since we can't tell how long it has been present. her last BMP from 04/2024 almost 1 year ago had na of 135. AM cortisol 03/07 wnl. urine osm 396 urine na 27 and serum osm 243 at admission. She appeared Euvolemic and has true hyponatremia with Abnormally high urine osm in the context of very low serum na of 117. 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 so rate of correction is appropriate Hyponatremia made her jelog-jwelyqwkg-ldispfpt decline worse but she also has underlying issues -cont current management of IV lasix 20 mg 3 daily doses IV w/ timing changed to disrupt sleep less > 0700, 1200, 1700; increased urea to 30 gm bid; continue salt tablets one gm bid and monitor HTN; continue current K supplements 40 mEq bid -continue 1.5L FR -Continue q8hr labs for now -protein shakes do NOT count toward FR > so ordered; reviewed w/ RN -Suggest dietary c/s to review w/ pt foods she likes/can access and prepare w/ target of 70 gm daily protein intake (this may avoid resorting to urea at d/c) -Note that SNRI from admission has been held; defer to primary service on this; of her admission meds this is likeliest psych med complicator of sodium issues; f/u psych recs -repeat BMP for 1800 ordered; primary service to f/u Care coordinated w/ Dr Gilmore multiple times through the day via TText re medication adjustments, lab timing, dietary recs; we are in agreement (2) Hypokalemia: Plan: Most likely nutritional given Low intake of Solid food. Now normal after aggressive Supplement. also with iv lasix she does need kcl >>continue 40 bid -maintain K of 4 so Na can correct appropriately Admission and Anticipated Discharge Date Admission Date: March 05, 2025 Subjective no acute interval events clinically. pt denies dyspnea, n/v, uncontrolled musculoskeletal abdominal or chest pain. denies thirst or edema. Review of Systems 2 Review of Systems: All systems reviewed & are unremarkable except as noted in Subjective Physical Exam 2 Constitutional: well developed and well nourished Eyes: EOM intact bilaterally ENMT: Mouth: oral mucous membranes not dry Respiratory: normal respiratory effort Auscultation: + diminished lung sounds Cardiovascular: Rate/Rhythm: regular rate and regular rhythm (not tachycardic on my eval) Extremities: no edema Gastrointestinal (Abdomen): Inspection/Auscultation: normal bowel sounds P ercussion/Palpation: abdomen soft; abdomen nontender Musculoskeletal: Extremities: strength 5/5 throughout Skin: no rashes, warm and dry Neurologic: gold, fluent speech, no tremor Psychiatric: Orientation: alert and oriented x 3 Speech: normal rate/rhythm/volume of speech Affect: + flat affect Results & Data Vital Signs (Past 12 Hours) Vital Signs Temp Pulse Resp BP Pulse Ox O2 Del Method 03/07/25 07:35 37.5 C 96 H 19 136/78 94 Room Air 03/07/25 03:34 36.8 C 92 H 16 135/68 95 Room Air Laboratory Results 03/06/25 06:13 03/07/25 07:23
--- NOTE | 2025-03-07 11:30 | Hospitalist Progress Note ---
Date of Service March 07, 2025 Assessment & Plan (1) Acute hyponatremia: (2) Metabolic encephalopathy: (3) Rapidly progressive weakness: (4) Hyponatremia: (5) Depression: (6) Anxiety: Plan This is a 74-year-old female who has a significant past medical history of prediabetes, senile osteoporosis, major depressive disorder and generalized anxiety disorder who presents to ED secondary to worsening generalized weakness, increased confusion and bladder incontinence over the last 36 hours. 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 There are mild chronic small vessel ischemic changes -mentation improving with treatment of SIADH -suspect underlying component of mild cognitive impairment/dementia vs. less likely NPH Plan: -continue folic acid, thiamine supplementation -continue vitamin D supplementation -wiring technician consult, appreciate recs -PT/OT evaluations ordered #Hypokalemia -resolved #Demand Ischemia -resolved #Healing posterior calcaneal fracture, left -[facility], had XR -started on keflex through 03/09 due to L soft tissue swelling - reports improvement of sx after initiation of antibiotics, will compete course #Depression #CHANDRAKANT -pt has battled this for several years -established with Dr. Dickson in 2016, initially multiple med changes, but has been stable for several years on current regimen -on Pristiq, abilify, mirtazapine at home -suspect likely cause of SIADH -aripiprazole is associated with SIADH as is desvenlafaxine, mirtazapine less so but possible Plan: -psychiatry consult, appreciate recs -continue decreased aripiprazole dose 2.5 mg and mirtazapine to 30 mg (from 45mg, very activating dose for nighttime, to assist with sleep wake cycle), desvenlafaxine held at admission, monitor for serotonin withdrawal symptoms, stable at this time I spent a total of 50 minutes in direct patient care, including [id number] time with the patient and/or family, reviewing medical records, ordering and reviewing diagnostic tests, and coordinating care with other healthcare provid ers. This time includes: history taking, physical examination, medical decision making, counseling, ECG interpretation, imaging interpretation, lab interpretation, orders, and education, excluding time spent in the performance of separately billed services. Admission and Anticipated Discharge Date Admission Date: March 05, 2025 Subjective Patient seen and examined at bedside. at bedside as well, discussed decreasing psychiatric medications and improving Na levels with current care. Discussed personally with nephrology, continue current care. Review of Systems Review of Systems: CONSTITUTIONAL: improving weakness and fatigue EYES: Patient denies any visual symptoms. EARS, NOSE, AND THROAT: No difficulties with hearing. No symptoms of rhinitis or sore throat. CARDIOVASCULAR: Patient denies chest pains, palpitations, orthopnea and paroxysmal nocturnal dyspnea. RESPIRATORY: No dyspnea on exertion, no wheezing or cough. GI: No nausea, vomiting, diarrhea, constipation, abdominal pain, hematochezia or melena. : No urinary hesitancy or dribbling. No nocturia or urinary frequency. No abnormal urethral discharge. MUSCULOSKELETAL: No myalgias or arthralgias. NEUROLOGIC: No chronic headaches, no seizures. Patient denies numbness, tingling or weakness. PSYCHIATRIC: Patient denies problems with mood disturbance. No problems with anxiety. ENDOCRINE: No excessive urination or excessive thirst. DERMATOLOGIC: Patient denies any rashes or skin changes. Physical Exam Physical Exam: Gen: A&O 3 NAD, some sarcopenia noted HEENT: NCAT, EOMI, not icteric. External ears normal. No rhinorrhea. Moist mucous membranes. Neck: Supple, full range of motion, no observable masses, No meningeal sign. Lungs: No Respiratory distress. CV: tachycardic, regular rhythm Abdomen: Soft, nondistended, No rebound tenderness. MSK: No joint swelling, no redness. Noted right antecubital fossa rash Skin: some scattered petechiae Normal color per patient. Neuro: finger to finger touch relatively maintained, no noticeable focal deficits Psych: unremarkable Results & Data Results & Data Vital Signs (Past 12 Hours) Vital Signs Temp Pulse Resp BP Pulse Ox O2 Del Method 03/07/25 07:35 37.5 C 96 H 19 136/78 94 Room Air 03/07/25 03:34 36.8 C 92 H 16 135/68 95 Room Air Laboratory Results -personally reviewed, Na 128 is improved at correct rate of improvement, AM cortisol unremarkable Medications Administered Aripiprazole (Aripiprazole 5 Mg Tab) 2.5 mg PO QAM [facility] Stop: 04/06/25 08:59 Last Admin: 03/07/25 08:55 Dose: 2.5 mg Documented By: AM Artificial Tears (Artificial Tears) 1 drops OP BID NA Stop: 04/04/25 20:59 Last Admin: 03/07/25 08:55 Dose: 1 drops Documented By: Admin: 03/06/25 22:08 Dose: 1 drops Documented By: Admin: 03/06/25 08:31 Dose: 1 drops Documented By: K Admin: 03/05/25 21:20 Dose: 1 drops Documented By: ESSIE Cephalexin HCl (Cephalexin 500 Mg Cap) 500 mg PO QID [facility]; Protocol Stop: 03/09/25 16:59 Last Admin: 03/07/25 08:54 Dose: 500 mg Documented By: Admin: 03/06/25 22:02 Dose: 500 mg Documented By: Admin: 03/06/25 17:45 Dose: 500 mg Documented By: Admin: 03/06/25 12:33 Dose: 500 mg Documented By: Admin: 03/06/25 08:31 Dose: 500 mg Documented By: K Admin: 03/05/25 21:15 Dose: 500 mg Documented By: Admin: 03/05/25 18:00 Dose: 500 mg Documented By: GILBERT Cyclosporine (Cyclosporine (Restasis)) 1 drops OPB BID NA Stop: 04/05/25 11:44 Last Admin: 03/07/25 08:54 Dose: 1 drops Documented By: Admin: 03/06/25 22:09 Dose: 1 drops Documented By: Admin: 03/06/25 12:33 Dose: 1 drops Documented By: K Enoxaparin Sodium (Enoxaparin Inj 40 Mg/0.4 Ml Syr) 40 mg SQ HS [facility] Stop: 04/04/25 20:59 Last Admin: 03/06/25 22:01 Dose: 40 mg Documented By: Admin: 03/05/25 21:14 Dose: 40 mg Documented By: ESSIE Folic Acid (Folic Acid 1 Mg Tab) 1 mg PO QAM NA Stop: 04/05/25 13:59 Last Admin: 03/07/25 08:54 Dose: 1 mg Documented By: Admin: 03/06/25 15:10 Dose: 1 mg Documented By: DONY Furosemide (Furosemide Inj 20 Mg/2 Ml Vial) 20 mg IV Q8H NA Stop: 04/04/25 20:59 Last Admin: 03/07/25 05:44 Dose: 20 mg Documented By: Admin: 03/06/25 22:12 Dose: 20 mg Documented By: Admin: 03/06/25 12:34 Dose: 20 mg Documented By: Admin: 03/06/25 05:46 Dose: 20 mg Documented By: Admin: 03/05/25 21:20 Dose: 20 mg Documented By: ESSIE Mirtazapine (Mirtazapine Soltab 15 Mg) 30 mg PO [facility] Stop: 04/05/25 20:59 Last Admin: 03/06/25 22:08 Dose: 30 mg Documented By: BOOGIE Miscellaneous (Desvenlafaxine Succinate [Pristiq] 100 Mg Tablet Extended Releas--Order Awaiting Action) 1 each N/A QS [facility] Stop: 04/05/25 00:00 Last Admin: 03/07/25 07:46 Dose: Not Given Documented By: Admin: 03/06/25 23:05 Dose: Not Given Documented By: Admin: 03/06/25 21:47 Dose: Not Given Documented By: Admin: 03/06/25 21:46 Dose: Not Given Documented By: Admin: 03/06/25 01:33 Dose: Not Given Documented By: ESSIE Miscellaneous (Loteprednol Etabonate 0.5 % Drops,Suspension--Order Awaiting Action) 1 each N/A QS [facility] Stop: 04/05/25 00:00 Last Admin: 03/07/25 07:45 Dose: Not Given Documented By: Admin: 03/06/25 23:06 Dose: Not Given Documented By: Admin: 03/06/25 21:47 Dose: Not Given Documented By: Admin: 03/06/25 21:46 Dose: Not Given Documented By: Admin: 03/06/25 01:33 Dose: Not Given Documented By: ESSIE Potassium Chloride (Potassium Chloride Crtab 20 Meq Tabcr) 40 meq PO BID NA Stop: 04/05/25 08:59 Last Admin: 03/07/25 10:29 Dose: Not Given Documented By: Admin: 03/06/25 21:59 Dose: 40 meq Documented By: Admin: 03/06/25 08:32 Dose: 40 meq Documented By: DONY Raloxifene HCl (Raloxifene Hcl 60 Mg Tab) 60 mg PO QAM NA Stop: 04/05/25 08:59 Last Admin: 03/07/25 08:54 Dose: 60 mg Documented By: Admin: 03/06/25 08:30 Dose: 60 mg Documented By: DONY Sodium Chloride (Sodium Chloride 1 Gm Tablet) 1 gm PO BID NA Stop: 04/04/25 20:59 Last Admin: 03/06/25 22:02 Dose: 1 gm Documented By: Admin: 03/06/25 08:31 Dose: 1 gm Documented By: Admin: 03/05/25 21:17 Dose: 1 gm Documented By: ESSIE Thiamine HCl (Thiamine Hcl 100 Mg Tab) 100 mg PO QAM NA Stop: 04/05/25 13:59 Last Admin: 03/07/25 08:54 Dose: 100 mg Documented By: Admin: 03/06/25 15:10 Dose: 100 mg Documented By: DONY Urea (Urea (Urea-Na) 15 Gm Pack) 15 gm PO BID NA Stop: 04/04/25 20:59 Last Admin: 03/06/25 22:07 Dose: 15 gm Documented By: Admin: 03/06/25 08:32 Dose: 15 gm Documented By: Admin: 03/05/25 21:14 Dose: 15 gm Documented By: ESSIE Vitamin D (Cholecalciferol 25 Mcg (1000 Units) Tab) 25 mcg PO DAILY NA Stop: 04/05/25 08:59 Last Admin: 03/07/25 08:54 Dose: 25 mcg Documented By: Admin: 03/06/25 08:31 Dose: 25 mcg Documented By: DONY
[2025-03-07] MEDS: FUROSEMIDE INJ 20 MG/2 ML VIAL IV SCH (14:07)
[2025-03-07] MEDS: ACETAMINOPHEN 325 MG TAB PO PRN (14:08)
[2025-03-07] MEDS: UREA (UREA-NA) 15 GM PACK PO SCH (14:08)
--- NOTE | 2025-03-07 14:34 | Psychiatric Consultation ---
Date of Consultation March 07, 2025 Impression / Recommendations Impression 74 y/o F h/o MDD, CHANDRAKANT presenting with AMS in the context of acute hyponatremia. Psychiatry consulted for evaluation of medication s/e. Patient presents with encephalopathy 2/2 hyponatremia. Stable mental functioning prior and no past dementia dx. At baseline fully oriented and able to complete ADLs independently. Labs reviewed and not suspicious for polygenic polydipsia given stable urine osmolality and no evidence of recent mood episode. Medications reviewed and collateral obtained from pt . Patient has been on desvenlafaxine for some years and can cause late-onset hyponatremia in susceptible individuals. Risk factors include older age 65+, female gender, use of diuretics. Both mirtazapine and aripiprazole have the potential to cause hyponatremia however much less common especially after being on a stable dose; unlikely to be the cause of hyponatremia. Additionally there is a dose dependent relationship. Pt would benefit from d/c of desvenlafaxine and reinitiation of antidepressant on outpatient psychiatry follow-up. Duloxetine would be the next logical choice in antidepressant given similar mechanism of action, less hyponatremia potential, and may alleviate patient's urinary incontinence. Would recommend regular monitoring of sodium levels after initiation of new antidepressant. No acute safety concerns identified. Overall, I spent a total of 80 minutes with this case including review of chart records, nursing report, review of lab work, direct evaluation of the patient at bedside, counseling the patient, discussion of the patient with the hospitalist provider, discussion with the psychiatric liaison during clinical rounds, and documentation in the electronic health record. (1) Hyponatremia: (2) Metabolic encephalopathy: (3) Anxiety and depression: (4) Side effect of medication: Plan Hold home Desvenlafaxine 100mg Resume Abilify 5mg daily Continue Mirtazapine 30mg HS Follow-up with outpatient psychiatrist for re-initiation of antidepressant Psych History Identifying Data 74 y/o F h/o MDD, CHANDRAKANT presenting with AMS in the context of acute hyponatremia. Psychiatry consulted for evaluation of medication s/e. Chief Complaint AMS, hyponatremia History of Present Illness On interview the patient is AO to self, city. Not to year ("2019") or name of hospital. She denies prolonged period of excess thirst. Reports fair sleep and mood in months prior. Has not been tried on cymbalta in the past. Collateral from indicates family h/o depression in multiple individuals one stabilized on psychotropics, another with ECT. Paternal grandmother with suspected Alzheimer's dementia. At baseline pt fully oriented and completes all ADLs. assists with iADLs. He denies there was precipating trauma or recent infection. Noticed excess water ingestion in past 10 days only. No med changes over past year. Pt mental status is improving. Allergies Allergy/AdvReac Type Severity Reaction Status Date / Time No Known Allergies Allergy Verified 03/05/25 13:18 Home Medications Medication Instructions Recorded Confirmed Type aripiprazole 5 mg tablet 5 mg PO QAM 05/29/24 03/05/25 History desvenlafaxine succinate 100 mg 100 mg PO QAM 05/29/24 03/05/25 History tablet,extended release 24 hr (Pristiq) mirtazapine 45 mg tablet 45 mg PO HS 05/29/24 03/05/25 History berberine chloride 500 mg capsule 500 mg PO DAILY 03/05/25 03/05/25 History cephalexin 500 mg capsule 500 mg PO QID 03/05/25 03/05/25 History cholecalciferol (vitamin D3) 25 25 mcg PO DAILY 03/05/25 03/05/25 History mcg (1,000 unit) tablet (Vitamin D3) cinnamon bark 500 mg capsule 500 mg PO DAILY 03/05/25 03/05/25 History (Cinnamon) collagen,hydrolysate 500 mg-biotin 1 cap PO DAILY 03/05/25 03/05/25 History 800 mcg-ascorbic acid 50 mg capsule (Collagen 1500 Plus C) cyclosporine 0.05 % eye drops in a 1 drp ophthalmic (eye) BID 03/05/25 03/05/25 History dropperette loteprednol etabonate 0.5 % eye See Rx Instructions .Route .COMPLEX 03/05/25 03/05/25 History drops,suspension omega 3 350 mg-dha 235 mg-epa 90 1 cap PO DAILY 03/05/25 03/05/25 History mg-fish oil 597 mg capsule,delay rel ([place]-3) raloxifene 60 mg tablet 60 mg PO QAM 03/05/25 03/05/25 History resveratrol 50 mg capsule 50 mg PO DAILY 03/05/25 03/05/25 History vitamin K2 40 mcg tablet 40 mcg PO DAILY 03/05/25 03/05/25 History Patient History Medical History Encounter for pre-operative examination Anxiety Depression Surgical History Hx of left cataract extraction History of colonoscopy S/P laminectomy "mid back" S/P tonsillectomy Family History Sister FHx: breast cancer Mother Breast cancer Family/Other Depression requiring ECT Grandmother (Paternal) Alzheimer disease Brother Ankylosing spondylitis Other No family history of adverse response to anesthesia Social History Smoking Status: Never smoker Second Hand Exposure: No; Do You Dip or Chew Tobacco: No; Hx Alcohol Use: No Hx Substance Use: No Preferred Language: Lao Communication Ability: Effective Social Media Sr Strategy Manager Required: No Beliefs That Will Affect Care: None Current Living Situation: Spouse Feels Safe at Home: Yes Safety Concerns: Feels Safe At This Time Assistive Devices: Cane, Walker and Wheelchair Physical Exam Mental Examination: Appearance: Well Groomed and Disheveled Eye Contact: Diverts Contact Motor Behavior: Slowed Speech: Delayed Mood: Euthymic and Calm Affect: Blunted Thought Process: Intact Thought Content: Disoriented and Poverty of Content Hallucinations: None Insight: Poor (to limited) Judgement: Fair Vital Signs (Past 24 Hours): Last Vital Signs Temp 36.7 C 03/07/25 11:43 Pulse 107 H 03/07/25 11:43 Resp 19 03/07/25 11:43 BP 159/83 H 03/07/25 11:43 Pulse Ox 92 03/07/25 11:43 O2 Del Method Room Air 03/07/25 11:43 Results & Data (PSY) Medications Administered Acetaminophen (Acetaminophen 325 Mg Tab) 650 mg PO Q4H PRN PRN Reason: Pain or Fever Stop: 04/04/25 16:21 Last Admin: 03/07/25 14:08 Dose: 650 mg Documented By: AM Aripiprazole (Aripiprazole 5 Mg Tab) 2.5 mg PO QAM NA Stop: 04/06/25 08:59 Last Admin: 03/07/25 08:55 Dose: 2.5 mg Documented By: AM Artificial Tears (Artificial Tears) 1 drops OP BID NA Stop: 04/04/25 20:59 Last Admin: 03/07/25 08:55 Dose: 1 drops Documented By: Admin: 03/06/25 22:08 Dose: 1 drops Documented By: Admin: 03/06/25 08:31 Dose: 1 drops Documented By: Admin: 03/05/25 21:20 Dose: 1 drops Documented By: ESSIE Cephalexin HCl (Cephalexin 500 Mg Cap) 500 mg PO QID NA; Protocol Stop: 03/09/25 16:59 Last Admin: 03/07/25 14:09 Dose: 500 mg Documented By: Admin: 03/07/25 08:54 Dose: 500 mg Documented By: Admin: 03/06/25 22:02 Dose: 500 mg Documented By: Admin: 03/06/25 17:45 Dose: 500 mg Documented By: Admin: 03/06/25 12:33 Dose: 500 mg Documented By: Admin: 03/06/25 08:31 Dose: 500 mg Documented By: Admin: 03/05/25 21:15 Dose: 500 mg Documented By: Admin: 03/05/25 18:00 Dose: 500 mg Documented By: GILBERT Cyclosporine (Cyclosporine (Restasis)) 1 drops OPB BID [facility] Stop: 04/05/25 11:44 Last Admin: 03/07/25 08:54 Dose: 1 drops Documented By: Admin: 03/06/25 22:09 Dose: 1 drops Documented By: Admin: 03/06/25 12:33 Dose: 1 drops Documented By: DONY Enoxaparin Sodium (Enoxaparin Inj 40 Mg/0.4 Ml Syr) 40 mg SQ HS NA Stop: 04/04/25 20:59 Last Admin: 03/06/25 22:01 Dose: 40 mg Documented By: Admin: 03/05/25 21:14 Dose: 40 mg Documented By: ESSIE Folic Acid (Folic Acid 1 Mg Tab) 1 mg PO QAM [facility] Stop: 04/05/25 13:59 Last Admin: 03/07/25 08:54 Dose: 1 mg Documented By: Admin: 03/06/25 15:10 Dose: 1 mg Documented By: DONY Furosemide (Furosemide Inj 20 Mg/2 Ml Vial) 20 mg IV DAILY@0700,1200,1700 NA Stop: 04/06/25 12:59 Last Admin: 03/07/25 14:07 Dose: 20 mg Documented By: AM Mirtazapine (Mirtazapine Soltab 15 Mg) 30 mg PO HS NA Stop: 04/05/25 20:59 Last Admin: 03/06/25 22:08 Dose: 30 mg Documented By: BOOGIE Potassium Chloride (Potassium Chloride Crtab 20 Meq Tabcr) 40 meq PO BID NA Stop: 04/05/25 08:59 Last Admin: 03/07/25 10:29 Dose: Not Given Documented By: Admin: 03/06/25 21:59 Dose: 40 meq Documented By: Admin: 03/06/25 08:32 Dose: 40 meq Documented By: DONY Raloxifene HCl (Raloxifene Hcl 60 Mg Tab) 60 mg PO QAM NA Stop: 04/05/25 08:59 Last Admin: 03/07/25 08:54 Dose: 60 mg Documented By: Admin: 03/06/25 08:30 Dose: 60 mg Documented By: DONY Sodium Chloride (Sodium Chloride 1 Gm Tablet) 1 gm PO BID NA Stop: 04/04/25 20:59 Last Admin: 03/06/25 22:02 Dose: 1 gm Documented By: Admin: 03/06/25 08:31 Dose: 1 gm Documented By: Admin: 03/05/25 21:17 Dose: 1 gm Documented By: ESSIE Thiamine HCl (Thiamine Hcl 100 Mg Tab) 100 mg PO QAM NA Stop: 04/05/25 13:59 Last Admin: 03/07/25 08:54 Dose: 100 mg Documented By: Admin: 03/06/25 15:10 Dose: 100 mg Documented By: DONY Urea (Urea (Urea-Na) 15 Gm Pack) 30 gm PO BID NA Stop: 04/06/25 12:59 Last Admin: 03/07/25 14:08 Dose: 30 gm Documented By: AM Vitamin D (Cholecalciferol 25 Mcg (1000 Units) Tab) 25 mcg PO DAILY NA Stop: 04/05/25 08:59 Last Admin: 03/07/25 08:54 Dose: 25 mcg Documented By: Admin: 03/06/25 08:31 Dose: 25 mcg Documented By: DON[place] [address] IN/OBS CONSULT LVL 5,80M Patient Type New History Comprehensive Exam Comprehensive Medical Decision Making High Complexity Diagnoses Hyponatremia E87.1 Metabolic encephalopathy G93.41 Anxiety and depression F41.9; F32.A Side effect of medication T88.7XXA
--- NOTE | 2025-03-07 16:18 | XRay Report ---
XR hip RT min 2V CLINICAL HISTORY: concern for hip fracture COMPARISON: None FINDINGS: No fracture or dislocation. There are mild degenerative changes at the right hip. There is mild sclerosis at the right SI joint. IMPRESSION: No fracture seen. ACT 112: Negative or not required by law. Electronically signed by: Kody Ventura M.D. 03/07/2025 4:16 PM
[2025-03-07 18:32] LABS: BUN Creatinine Ratio 48.2 (10-20); Calcium 8.8 mg/dl (8.6-10.3); Creatinine Clr Calc Pharmacy 56.1 ml/min
[2025-03-07] MEDS: MELATONIN 3 MG TAB PO PRN (20:19)
[2025-03-08 07:22] LABS: BUN Creatinine Ratio 73.8 (10-20); Calcium 9.6 mg/dl (8.6-10.3); Creatinine Clr Calc Pharmacy 76.3 ml/min; Potassium 4.4 mmol/L (3.5-5.1)
[2025-03-08 08:55] LABS: Magnesium 2.4 mg/dl (1.7-2.4); Phosphorus 3.7 mg/dl (2.5-4.9)
[2025-03-08] MEDS: ARIPiprazole 5 MG TAB PO SCH (09:13)
--- NOTE | 2025-03-08 10:03 | Nephrology Progress Note ---
Date of Service March 08, 2025 Assessment & Plan Admission and Anticipated Discharge Date Admission Date: March 05, 2025 Subjective Assessment & Plan (1) Hyponatremia: Acute hyponatremia but cant tell how long it has been progressing. her last BMP from 04/2024 so almost 1 year ago and had na of 135. urine osm 396 urine na 27 and serum osm 243. She appeared Euvolemic and has true hyponatremia with Abnormally high urine osm in the context of very low serum na of 117. 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 Currently na is rising nicely from 117 to 124. today is 130. rate of correction is fine. I think the biggest issue is her excessive drinking of liquids. FFR 1500 ml /day. Will start deescalating management for discharge. d/c Iv lasix. Change to torsemide 20 bid. D/c urea--No one likes it really. She was happy with this. Will use only if absolutely needed. Continue salt tab 1 gm bid Lower kcl to 20 bid As per she is feeling much better already. Hyponatremia made her toznu-mbyzuipvh-[id number] decline worse but she also has underlying issues Change labs to q8hr. one during day and one in evening and then in AM. Making dilute looking urine which is good. check urine osm again today (2) Hypokalemia: Most likely nutritional given Low PO intake of Solid food. Now normal after aggressive Supplement. also with diuretics she does need kcl-- continue lower dose at 20 bid. (3) Rapidly progressive weakness: S--overall looking better. na now up to 130 now. ROS--see HPI. otherwise 12 systems reviewed and negative exam: Awake and alert but sleepy. Can give some history but then eyes close MM moist. Neck supple. NO JVD Chest b/l clear. CVS--RRR. no murmur Ext--No edema. Results & Data Vital Signs (Past 12 Hours) Vital Signs Temp Pulse Pulse Resp BP Pulse Ox O2 Del Method 03/08/25 08:00 36.7 C 111 H 17 112/68 96 Room Air 03/08/25 03:20 36.5 C 114 H 18 145/89 H 95 Room Air 03/07/25 22:45 114 H
[2025-03-08] MEDS: TORSEMIDE 20 MG TAB PO SCH (11:12)
--- NOTE | 2025-03-08 12:04 | Hospitalist Progress Note ---
Date of Service March 08, 2025 Assessment & Plan (1) Acute hyponatremia: (2) Metabolic encephalopathy: (3) Rapidly progressive weakness: (4) Hyponatremia: (5) Depression: (6) Anxiety: Plan This is a 74-year-old female who has a significant past medical history of prediabetes, senile osteoporosis, major depressive disorder and generalized anxiety disorder who presents to ED secondary to worsening generalized weakness, increased confusion and bladder incontinence over the last 36 hours. 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 There are mild chronic small vessel ischemic changes -mentation improving with treatment of SIADH -suspect underlying component of mild cognitive impairment/dementia vs. 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 Dickson in 2016, initially multiple med changes, but has been stable for several years on current regimen -on Pristiq, abilify, mirtazapine at home -suspect likely cause of SIADH -aripiprazole is associated with SIADH as is desvenlafaxine, mirtazapine less so but possible Plan: -psychiatry consult, appreciate recs -shared decision making with who would like to decrease dose of ariprazole, decrease aripiprazole dose to 2.5 mg, continue mirtazapine to 30 mg, desvenlafaxine held at admission, monitor for serotonin withdrawal symptoms, stable at this time I spent a total of 50 minutes in direct patient care, including [id number] time with the patient and/or family, reviewing medical records, ordering and reviewing diagnostic tests, and coordinating care with other healthcare providers. This time includes: history taking, physical examination, medical decision making, counseling, ECG interpretation, imaging interpretation, lab interpretation, orders, and education, excluding time spent in the performance of separately billed services. Admission and Anticipated Discharge Date Admission Date: March 05, 2025 Subjective Patient seen and examined at bedside. Patient doing well today, feeling better. Discussed at length with , updated on plan of care, appreciative of the update. Review of Systems Review of Systems: CONSTITUTIONAL: improving weakness and fatigue EYES: Patient denies any visual symptoms. EARS, NOSE, AND THROAT: No difficulties with hearing. No symptoms of rhinitis or sore throat. CARDIOVASCULAR: Patient denies chest pains, palpitations, orthopnea and par oxysmal nocturnal dyspnea. RESPIRATORY: No dyspnea on exertion, no wheezing or cough. GI: No nausea, vomiting, diarrhea, constipation, abdominal pain, hematochezia or melena. : No urinary hesitancy or dribbling. No nocturia or urinary frequency. No abnormal urethral discharge. MUSCULOSKELETAL: No myalgias or arthralgias. NEUROLOGIC: No chronic headaches, no seizures. Patient denies numbness, tingling or weakness. PSYCHIATRIC: Patient denies problems with mood disturbance. No problems with anxiety. ENDOCRINE: No excessive urination or excessive thirst. DERMATOLOGIC: Patient denies any rashes or skin changes. Physical Exam Physical Exam: Gen: A&O 3 NAD, some sarcopenia noted HEENT: NCAT, EOMI, not icteric. External ears normal. No rhinorrhea. Moist mucous membranes. Neck: Supple, full range of motion, no observable masses, No meningeal sign. Lungs: No Respiratory distress. CV: tachycardic, regular rhythm Abdomen: Soft, nondistended, No rebound tenderness. MSK: No joint swelling, no redness. Noted right antecubital fossa rash, improving Skin: some scattered petechiae Normal color per patient. Neuro: finger to finger touch relatively maintained, no noticeable focal deficits Psych: unremarkable Results & Data Results & Data Vital Signs (Past 12 Hours) Vital Signs Temp Pulse Pulse Resp BP Pulse Ox O2 Del Method 03/08/25 11:04 116 H 03/08/25 08:00 36.7 C 111 H 17 112/68 96 Room Air 03/08/25 03:20 36.5 C 114 H 18 145/89 H 95 Room Air Laboratory Results -personally reviewed, Na improved to 130, creatinine at baseline Medications Administered Acetaminophen (Acetaminophen 325 Mg Tab) 650 mg PO Q4H PRN PRN Reason: Pain or Fever Stop: 04/04/25 16:21 Last Admin: 03/08/25 03:37 Dose: 650 mg Documented By: Admin: 03/07/25 14:08 Dose: 650 mg Documented By: AM Aripiprazole (Aripiprazole 5 Mg Tab) 5 mg PO QAM [facility] Stop: 04/07/25 08:59 Last Admin: 03/08/25 09:13 Dose: 5 mg Documented By: Artificial Tears (Artificial Tears) 1 drops OP BID [facility] Stop: 04/04/25 20:59 Last Admin: 03/08/25 11:13 Dose: 1 drops Documented By: Admin: 03/07/25 20:13 Dose: 1 drops Documented By: Admin: 03/07/25 08:55 Dose: 1 drops Documented By: Admin: 03/06/25 22:08 Dose: 1 drops Documented By: Admin: 03/06/25 08:31 Dose: 1 drops Documented By: K Admin: 03/05/25 21:20 Dose: 1 drops Documented By: ESSIE Cephalexin HCl (Cephalexin 500 Mg Cap) 500 mg PO QID [facility]; Protocol Stop: 03/09/25 16:59 Last Admin: 03/08/25 09:14 Dose: 500 mg Documented By: Admin: 03/07/25 20:13 Dose: 500 mg Documented By: Admin: 03/07/25 18:10 Dose: 500 mg Documented By: Admin: 03/07/25 14:09 Dose: 500 mg Documented By: Admin: 03/07/25 08:54 Dose: 500 mg Documented By: Admin: 03/06/25 22:02 Dose: 500 mg Documented By: Admin: 03/06/25 17:45 Dose: 500 mg Documented By: Admin: 03/06/25 12:33 Dose: 500 mg Documented By: Admin: 03/06/25 08:31 Dose: 500 mg Documented By: Admin: 03/05/25 21:15 Dose: 500 mg Documented By: Admin: 03/05/25 18:00 Dose: 500 mg Documented By: GILBERT Cyclosporine (Cyclosporine (Restasis)) 1 drops OPB BID NA Stop: 04/05/25 11:44 Last Admin: 03/08/25 11:14 Dose: 1 drops Documented By: Admin: 03/07/25 20:14 Dose: 1 drops Documented By: Admin: 03/07/25 08:54 Dose: 1 drops Documented By: Admin: 03/06/25 22:09 Dose: 1 drops Documented By: Admin: 03/06/25 12:33 Dose: 1 drops Documented By: DONY Enoxaparin Sodium (Enoxaparin Inj 40 Mg/0.4 Ml Syr) 40 mg SQ HS NA Stop: 04/04/25 20:59 Last Admin: 03/07/25 20:14 Dose: 40 mg Documented By: Admin: 03/06/25 22:01 Dose: 40 mg Documented By: Admin: 03/05/25 21:14 Dose: 40 mg Documented By: ESSIE Folic Acid (Folic Acid 1 Mg Tab) 1 mg PO QAM NA Stop: 04/05/25 13:59 Last Admin: 03/08/25 09:13 Dose: 1 mg Documented By: Admin: 03/07/25 08:54 Dose: 1 mg Documented By: Admin: 03/06/25 15:10 Dose: 1 mg Documented By: DONY Melatonin (Melatonin 3 Mg Tab) 3 mg PO HS PRN PRN Reason: Sleep Stop: 04/04/25 16:21 Last Admin: 03/07/25 20:19 Dose: 3 mg Documented By: KATHERINE Mirtazapine (Mirtazapine Soltab 15 Mg) 30 mg PO HS NA Stop: 04/05/25 20:59 Last Admin: 03/07/25 20:16 Dose: 30 mg Documented By: Admin: 03/06/25 22:08 Dose: 30 mg Documented By: BOOGIE Raloxifene HCl (Raloxifene Hcl 60 Mg Tab) 60 mg PO QAM NA Stop: 04/05/25 08:59 Last Admin: 03/08/25 09:15 Dose: 60 mg Documented By: Admin: 03/07/25 08:54 Dose: 60 mg Documented By: Admin: 03/06/25 08:30 Dose: 60 mg Documented By: DONY Sodium Chloride (Sodium Chloride 1 Gm Tablet) 1 gm PO BID NA Stop: 04/04/25 20:59 Last Admin: 03/08/25 09:15 Dose: 1 gm Documented By: Admin: 03/07/25 20:17 Dose: 1 gm Documented By: Admin: 03/06/25 22:02 Dose: 1 gm Documented By: Admin: 03/06/25 08:31 Dose: 1 gm Documented By: Admin: 03/05/25 21:17 Dose: 1 gm Documented By: ESSIE Thiamine HCl (Thiamine Hcl 100 Mg Tab) 100 mg PO QAM NA Stop: 04/05/25 13:59 Last Admin: 03/08/25 09:15 Dose: 100 mg Documented By: Admin: 03/07/25 08:54 Dose: 100 mg Documented By: Admin: 03/06/25 15:10 Dose: 100 mg Documented By: DONY Torsemide (Torsemide 20 Mg Tab) 20 mg PO BID17 NA Stop: 04/07/25 10:14 Last Admin: 03/08/25 11:12 Dose: 20 mg Documented By: Vitamin D (Cholecalciferol 25 Mcg (1000 Units) Tab) 25 mcg PO DAILY NA Stop: 04/05/25 08:59 Last Admin: 03/08/25 09:14 Dose: 25 mcg Documented By: Admin: 03/07/25 08:54 Dose: 25 mcg Documented By: Admin: 03/06/25 08:31 Dose: 25 mcg Documented By: DONY
[2025-03-08] MEDS: POTASSIUM CHLORIDE CRTAB 20 MEQ TABCR PO SCH (17:44)
[2025-03-09 07:05] LABS: BUN Creatinine Ratio 40.7 (10-20); Calcium 9.6 mg/dl (8.6-10.3); Creatinine Clr Calc Pharmacy 51.1 ml/min; Magnesium 2.3 mg/dl (1.7-2.4); Phosphorus 4.7 mg/dl (2.5-4.9)
[2025-03-09] MEDS: ARIPiprazole 5 MG TAB PO SCH (07:43)
--- NOTE | 2025-03-09 11:53 | Nephrology Progress Note ---
Date of Service March 09, 2025 Assessment & Plan Admission and Anticipated Discharge Date Admission Date: March 05, 2025 Subjective Assessment & Plan (1) Hyponatremia: Acute hyponatremia but cant tell how long it has been progressing. her last BMP from 04/2024 so almost 1 year ago and had na of 135. urine osm 396 urine na 27 and serum osm 243. She appeared Euvolemic and has true hyponatremia with Abnormally high urine osm in the context of very low serum na of 117. 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 Currently na is rising nicely from 117 to 124. today is 134. rate of correction is fine. I think the biggest issue is her excessive drinking of liquids. FFR 1500 ml /day. Will start deescalating management for discharge. d/c Salt tab also. Dont think she needs this either. Continue torsemide 20 bid. D/c urea--No one likes it really. She was happy with this. Will use only if absolutely needed. Lower kcl to 20 bid As per she is feeling much better already. Hyponatremia made her [id number]-[id number]-[id number] decline worse but she also has underlying issues Change labs to q8hr. one during day and one in evening and then in AM. Making dilute looking urine which is good. check urine osm again today (2) Hypokalemia: Most likely nutritional given Low PO intake of Solid food. Now normal after aggressive Supplement. also with diuretics she does need kcl-- continue lower dose at 20 bid. (3) Rapidly progressive weakness: S--overall looking better. na now up to 134 now. ROS--see HPI. otherwise 12 systems reviewed and negative exam: Awake and alert but sleepy. Can give some history but then eyes close MM moist. Neck supple. NO JVD Chest b/l clear. CVS--RRR. no murmur Ext--No edema. Results & Data Vital Signs (Past 12 Hours) Vital Signs Temp Pulse Pulse Pulse Resp BP Pulse Ox 03/09/25 07:52 36.5 C 120 H 18 146/83 H 94 03/09/25 07:27 111 H 03/09/25 04:00 36.8 C 119 H 17 122/80 93 03/09/25 00:22 127 H O2 Del Method 03/09/25 07:52 Room Air 03/09/25 07:27 03/09/25 04:00 Room Air 03/09/25 00:22
--- NOTE | 2025-03-09 13:17 | Hospitalist Progress Note ---
Date of Service March 09, 2025 Assessment & Plan (1) Acute hyponatremia: (2) Metabolic encephalopathy: (3) Rapidly progressive weakness: (4) Hyponatremia: (5) Depression: (6) Anxiety: Plan This is a 74-year-old female who has a significant past medical history of prediabetes, senile osteoporosis, major depressive disorder and generalized anxiety disorder who presents to ED secondary to worsening generalized weakness, increased confusion and bladder incontinence over the last 36 hours. 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 There are mild chronic small vessel ischemic changes -mentation improving with treatment of SIADH -suspect underlying component of mild cognitive impairment/dementia vs. 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 Dickson in 2016, initially multiple med changes, but has been stable for several years on current regimen -on Pristiq, abilify, mirtazapine at home -suspect likely cause of SIADH -aripiprazole is associated with SIADH as is desvenlafaxine, mirtazapine less so but possible Plan: -psychiatry consult, appreciate recs -continue aripiprazole dose to 2.5 mg (shared decision making with and patient), continue mirtazapine to 30 mg, desvenlafaxine held at admission, monitor for serotonin withdrawal symptoms, stable at this time I spent a total of 50 minutes in direct patient care, including [id number] time with the patient and/or family, reviewing medical records, ordering and reviewing diagnostic tests, and coordinating care with other healthcare providers. This time includes: history taking, physical examination, medical decision making, counseling, ECG interpretation, imaging interpretation, lab interpretation, orders, and education, excluding time spent in the performance of separately billed services. Admission and Anticipated Discharge Date Admission Date: March 05, 2025 Subjective Patient seen and examined at bedside. Patient doing well today. Discussed case extensively with at bedside, sisters present as well, they appreciated the update. Review of Systems Review of Systems: CONSTITUTIONAL: improving weakness and fatigue EYES: Patient denies any visual symptoms. EARS, NOSE, AND THROAT: No difficulties with hearing. No symptoms of rhinitis or sore throat. CARDIOVASCULAR: Patient denies chest pains, palpitations, orthopnea and paroxysmal nocturnal dyspnea. RESPIRATORY: No dyspnea on exertion, no wheezing or cough. GI: No nausea, vomiting, diarrhea, constipation, abdominal pain, hematochezia or melena. : No urinary hesitancy or dribbling. No nocturia or urinary frequency. No abnormal urethral discharge. MUSCULOSKELETAL: No myalgias or arthralgias. NEUROLOGIC: No chronic headaches, no seizures. Patient denies numbness, tingling or weakness. PSYCHIATRIC: Patient denies problems with mood disturbance. No problems with anxiety. ENDOCRINE: No excessive urination or excessive thirst. DERMATOLOGIC: Patient denies any rashes or skin changes. Physical Exam Physical Exam: Gen: A&O 3 NAD, some sarcopenia noted HEENT: NCAT, EOMI, not icteric. External ears normal. No rhinorrhea. Moist mucous membranes. Neck: Supple, full range of motion, no observable masses, No meningeal sign. Lungs: No Respiratory distress. CV: tachycardic, regular rhythm Abdomen: Soft, nondistended, No rebound tenderness. MSK: No joint swelling, no redness. Noted right antecubital fossa rash, improvi ng Skin: some scattered petechiae Normal color per patient. Neuro: finger to finger touch relatively maintained, no noticeable focal deficits Psych: unremarkable Results & Data Results & Data Vital Signs (Past 12 Hours) Vital Signs Temp Pulse Pulse Pulse Resp BP Pulse Ox 03/09/25 12:27 36.8 C 120 H 18 130/75 92 03/09/25 07:52 36.5 C 120 H 18 146/83 H 94 03/09/25 07:27 111 H 03/09/25 04:00 36.8 C 119 H 17 122/80 93 O2 Del Method 03/09/25 12:27 Room Air 03/09/25 07:52 Room Air 03/09/25 07:27 03/09/25 04:00 Room Air Laboratory Results -personally reviewed, Na of 134 improving Medications Administered Acetaminophen (Acetaminophen 325 Mg Tab) 650 mg PO Q4H PRN PRN Reason: Pain or Fever Stop: 04/04/25 16:21 Last Admin: 03/09/25 08:22 Dose: 650 mg Documented By: Admin: 03/08/25 03:37 Dose: 650 mg Documented By: Admin: 03/07/25 14:08 Dose: 650 mg Documented By: AM Aripiprazole (Aripiprazole 5 Mg Tab) 2.5 mg PO QAM [facility] Stop: 04/08/25 08:59 Last Admin: 03/09/25 07:43 Dose: 2.5 mg Documented By: Artificial Tears (Artificial Tears) 1 drops OP BID [facility] Stop: 04/04/25 20:59 Last Admin: 03/09/25 08:23 Dose: 1 drops Documented By: Admin: 03/08/25 20:12 Dose: 1 drops Documented By: Admin: 03/08/25 11:13 Dose: 1 drops Documented By: Admin: 03/07/25 20:13 Dose: 1 drops Documented By: Admin: 03/07/25 08:55 Dose: 1 drops Documented By: Admin: 03/06/25 22:08 Dose: 1 drops Documented By: Admin: 03/06/25 08:31 Dose: 1 drops Documented By: Admin: 03/05/25 21:20 Dose: 1 drops Documented By: ESSIE Cephalexin HCl (Cephalexin 500 Mg Cap) 500 mg PO QID [facility]; Protocol Stop: 03/09/25 16:59 Last Admin: 03/09/25 07:43 Dose: 500 mg Documented By: Admin: 03/08/25 20:12 Dose: 500 mg Documented By: Admin: 03/08/25 17:44 Dose: 500 mg Documented By: Admin: 03/08/25 13:28 Dose: 500 mg Documented By: Admin: 03/08/25 09:14 Dose: 500 mg Documented By: Admin: 03/07/25 20:13 Dose: 500 mg Documented By: Admin: 03/07/25 18:10 Dose: 500 mg Documented By: Admin: 03/07/25 14:09 Dose: 500 mg Documented By: Admin: 03/07/25 08:54 Dose: 500 mg Documented By: Admin: 03/06/25 22:02 Dose: 500 mg Documented By: Admin: 03/06/25 17:45 Dose: 500 mg Documented By: K Admin: 03/06/25 12:33 Dose: 500 mg Documented By: Admin: 03/06/25 08:31 Dose: 500 mg Documented By: K Admin: 03/05/25 21:15 Dose: 500 mg Documented By: Admin: 03/05/25 18:00 Dose: 500 mg Documented By: GILBERT Cyclosporine (Cyclosporine (Restasis)) 1 drops OPB BID NA Stop: 04/05/25 11:44 Last Admin: 03/09/25 08:23 Dose: 1 drops Documented By: Admin: 03/08/25 20:14 Dose: 1 drops Documented By: Admin: 03/08/25 11:14 Dose: 1 drops Documented By: Admin: 03/07/25 20:14 Dose: 1 drops Documented By: Admin: 03/07/25 08:54 Dose: 1 drops Documented By: Admin: 03/06/25 22:09 Dose: 1 drops Documented By: Admin: 03/06/25 12:33 Dose: 1 drops Documented By: K Enoxaparin Sodium (Enoxaparin Inj 40 Mg/0.4 Ml Syr) 40 mg SQ HS NA Stop: 04/04/25 20:59 Last Admin: 03/08/25 20:13 Dose: 40 mg Documented By: Admin: 03/07/25 20:14 Dose: 40 mg Documented By: Admin: 03/06/25 22:01 Dose: 40 mg Documented By: Admin: 03/05/25 21:14 Dose: 40 mg Documented By: ESSIE Folic Acid (Folic Acid 1 Mg Tab) 1 mg PO QAM NA Stop: 04/05/25 13:59 Last Admin: 03/09/25 07:45 Dose: 1 mg Documented By: Admin: 03/08/25 09:13 Dose: 1 mg Documented By: Admin: 03/07/25 08:54 Dose: 1 mg Documented By: Admin: 03/06/25 15:10 Dose: 1 mg Documented By: DONY Melatonin (Melatonin 3 Mg Tab) 3 mg PO HS PRN PRN Reason: Sleep Stop: 04/04/25 16:21 Last Admin: 03/08/25 20:12 Dose: 3 mg Documented By: [facility] Admin: 03/07/25 20:19 Dose: 3 mg Documented By: KATHERINE Mirtazapine (Mirtazapine Soltab 15 Mg) 30 mg PO HS NA Stop: 04/05/25 20:59 Last Admin: 03/08/25 20:12 Dose: 30 mg Documented By: Admin: 03/07/25 20:16 Dose: 30 mg Documented By: Admin: 03/06/25 22:08 Dose: 30 mg Documented By: BOOGIE Potassium Chloride (Potassium Chloride Crtab 20 Meq Tabcr) 20 meq PO BID17 NA Stop: 04/07/25 16:59 Last Admin: 03/09/25 07:45 Dose: 20 meq Documented By: Admin: 03/08/25 17:44 Dose: 20 meq Documented By: Raloxifene HCl (Raloxifene Hcl 60 Mg Tab) 60 mg PO QAM [facility] Stop: 04/05/25 08:59 Last Admin: 03/09/25 07:44 Dose: 60 mg Documented By: Admin: 03/08/25 09:15 Dose: 60 mg Documented By: Admin: 03/07/25 08:54 Dose: 60 mg Documented By: Admin: 03/06/25 08:30 Dose: 60 mg Documented By: DONY Thiamine HCl (Thiamine Hcl 100 Mg Tab) 100 mg PO QAM [facility] Stop: 04/05/25 13:59 Last Admin: 03/09/25 07:44 Dose: 100 mg Documented By: Admin: 03/08/25 09:15 Dose: 100 mg Documented By: Admin: 03/07/25 08:54 Dose: 100 mg Documented By: Admin: 03/06/25 15:10 Dose: 100 mg Documented By: DONY Torsemide (Torsemide 20 Mg Tab) 20 mg PO BID17 NA Stop: 04/07/25 10:14 Last Admin: 03/09/25 08:22 Dose: 20 mg Documented By: Admin: 03/08/25 17:44 Dose: 20 mg Documented By: Admin: 03/08/25 11:12 Dose: 20 mg Documented By: Vitamin D (Cholecalciferol 25 Mcg (1000 Units) Tab) 25 mcg PO DAILY NA Stop: 04/05/25 08:59 Last Admin: 03/09/25 07:42 Dose: 25 mcg Documented By: Admin: 03/08/25 09:14 Dose: 25 mcg Documented By: Admin: 03/07/25 08:54 Dose: 25 mcg Documented By: Admin: 03/06/25 08:31 Dose: 25 mcg Documented By: DONY
[2025-03-09 16:53] LABS: D Dimer 1030 ug/L FEU (0-500)
[2025-03-09] MEDS: OPTIRAY 320 125ml IV ONE (18:14)
--- NOTE | 2025-03-09 19:34 | CT Scan Report ---
CT pulmonary angiogram with IV contrast, History: Evaluate for pulmonary embolism. Stroke alert. COMPARISON: None. TECHNIQUE: CT angiography of the chest was performed without IV contrast followed by IV contrast, including 3D post processing CTA image reconstruction. FINDINGS: Insurance Agency Sales Manager film demonstrates fractures of the lumbar spine. Chronicity indeterminate. Lung windows demonstrate minimal subsegmental atelectasis and/or scarring. Soft tissue windows demonstrate pulmonary artery opacification of diagnostic quality. Distal subsegmental arteries are limited secondary to motion. No pulmonary artery filling defects. No secondary findings such as peripheral wedge-shaped pulmonary opacities or pleural effusions to indicate acute thromboembolic disease. Thoracic aorta demonstrates normal course and caliber without dissection. Calcified atherosclerotic changes coronary vasculature. Heart size is within normal limits. Moderate size sliding-type hiatal hernia. Included upper abdomen is within normal limits. Bone windows demonstrate no acute osseous process. IMPRESSION: 1. No pulmonary embolism. No acute pulmonary disease. 2. Moderate size sliding-type hiatal hernia. 3. Coronary artery disease. Please see above for details. Electronically signed by Bryon Pereyra 03-09-2025 7:34 PM
[2025-03-10 06:12] LABS: Hematocrit (blood only) 41.8 % (37.0-47.0); Hemoglobin 14.3 g/dl (12.0-16.0); Mean Corpuscular Hemoglobin 30.3 pg (25.0-34.0); Mean Corpuscular Hgb Conc 34.2 g/dL (32.0-36.0); Mean Corpuscular Volume 88.6 fL (80.0-100.0); Mean Platelet Volume 8.2 fL (9.4-12.4); Platelet Count 473 K/uL (130-400); RDW Coefficient of Variation 12.8 % (11.5-14.5); RDW Standard Deviation 41.4 fL (36.4-46.3); Red Blood Count 4.72 M/uL (4.20-5.40); White Blood Count 10.65 K/ul (4.8-10.8)
[2025-03-10 06:38] LABS: Albumin Globulin Ratio 1.6 (0.9-2); Albumin Level 4.2 gm/dl (3.4-5.0); BUN Creatinine Ratio 45.5 (10-20); Bilirubin,Total 0.5 mg/dl (0.2-1.0); Calcium 9.3 mg/dl (8.6-10.3); Creatinine Clr Calc Pharmacy 52.9 ml/min; Globulin 2.6 gm/dl (2.5-4.0); Magnesium 2.4 mg/dl (1.7-2.4); Phosphorus 4.2 mg/dl (2.5-4.9); Potassium 3.9 mmol/L (3.5-5.1); Total Protein 6.8 gm/dl (6.0-8.3)
--- NOTE | 2025-03-10 09:54 | Hospitalist Progress Note ---
Date of Service March 10, 2025 Assessment & Plan (1) Acute hyponatremia: (2) Metabolic encephalopathy: (3) Rapidly progressive weakness: (4) Hyponatremia: (5) Depression: (6) Anxiety: Plan This is a 74-year-old female who has a significant past medical history of prediabetes, senile osteoporosis, major depressive disorder and generalized anxiety disorder who presents to ED secondary to worsening generalized weakness, increased confusion and bladder incontinence over the last 36 hours. 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 There are mild chronic small vessel ischemic changes -mentation improving with treatment of SIADH -suspect underlying component of mild cognitive impairment/dementia vs. 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 Dickson in 2016, initially multiple med changes, but has been stable for several years on current regimen -on Pristiq, abilify, mirtazapine at home -suspect likely cause of SIADH -aripiprazole is associated with SIADH as is desvenlafaxine, mirtazapine less so but possible Plan: -psychiatry consult, appreciate recs -continue aripiprazole dose to 2.5 mg (shared decision making with and patient), continue mirtazapine to 30 mg, desvenlafaxine held at admission, monitor for serotonin withdrawal symptoms, stable at this time #Sinus Tachycardia -ECG sinus rhythm with some ST depressions in lateral leads -troponin minimally elevated on admission -no chest pain Plan: -check echo today I spent a total of 50 minutes in direct patient care, including [id number] time with the patient and/or family, reviewing medical records, ordering and reviewing diagnostic tests, and coordinating care with other healthcare providers. This time includes: history taking, physical examination, medical decision making, counseling, ECG interpretation, imaging interpretation, lab interpretation, orders, and education, excluding time spent in the performance of separately billed services. Admission and Anticipated Discharge Date Admission Date: March 05, 2025 Subjective Patient seen and examined at bedside. Patient doing well today, no concerns at this time. Discussed case extensively with , who was appreciative of the update. Review of Systems Review of Systems: CONSTITUTIONAL: improving weakness and fatigue EYES: Patient denies any visual symptoms. EARS, NOSE, AND THROAT: No difficulties with hearing. No symptoms of rhinitis or sore throat. CARDIOVASCULAR: Patient denies chest pains, palpitations, orthopnea and paroxysmal nocturnal dyspnea. RESPIRATORY: No dyspnea on exertion, no wheezing or cough. GI: No nausea, vomiting, diarrhea, constipation, abdominal pain, hematochezia or melena. : No urinary hesitancy or dribbling. No nocturia or urinary frequency. No abnormal urethral discharge. MUSCULOSKELETAL: No myalgias or arthralgias. NEUROLOGIC: No chronic headaches, no seizures. Patient denies numbness, tingling or weakness. PSYCHIATRIC: Patient denies problems with mood disturbance. No problems with anxiety. ENDOCRINE: No excessive urination or excessive thirst. DERMATOLOGIC: Patient denies any rashes or skin changes. Physical Exam Physical Exam: Gen: A&O 3 NAD, some sarcopenia noted HEENT: NCAT, EOMI, not icteric. External ears normal. No rhinorrhea. Moist mucous membranes. Neck: Supple, full range of motion, no observable masses, No meningeal sign. Lungs: No Respiratory distress. CV: tachycardic, regular rhythm Abdomen: Soft, nondistended, No rebound tenderness. MSK: No joint swelling, no redness. Noted right antecubital fossa rash, improving Skin: some scattered petechiae Normal color per patient. Neuro: finger to finger touch relatively maintained, no noticeable focal deficits Psych: unremarkable Results & Data Results & Data Vital Signs (Past 12 Hours) Vital Signs Temp Pulse Pulse Resp BP Pulse Ox O2 Del Method 03/10/25 08:23 36.9 C 120 H 20 135/77 94 Room Air 03/10/25 06:45 114 H 03/10/25 05:00 125 H 03/10/25 04:20 37.3 C 108 H 20 134/78 93 Room Air Laboratory Results -personally reviewed, Na has improved to around WNL, D-dimer elevated likely multifactorial CT PE negative for PE Medications Administered Acetaminophen (Acetaminophen 325 Mg Tab) 650 mg PO Q4H PRN PRN Reason: Pain or Fever Stop: 04/04/25 16:21 Last Admin: 03/09/25 08:22 Dose: 650 mg Documented By: Admin: 03/08/25 03:37 Dose: 650 mg Documented By: Admin: 03/07/25 14:08 Dose: 650 mg Documented By: AM Aripiprazole (Aripiprazole 5 Mg Tab) [facility] [place] Stop: 04/08/25 08:59 Last Admin: 03/10/25 08:44 Dose: 2.5 mg Documented By: Admin: 03/09/25 07:43 Dose: 2.5 mg Documented By: Artificial Tears (Artificial Tears) 1 drops OP BID [facility] Stop: 04/04/25 20:59 Last Admin: 03/10/25 08:44 Dose: 1 drops Documented By: Admin: 03/09/25 20:00 Dose: 1 drops Documented By: Admin: 03/09/25 08:23 Dose: 1 drops Documented By: Admin: 03/08/25 20:12 Dose: 1 drops Documented By: [facility] Admin: 03/08/25 11:13 Dose: 1 drops Documented By: Admin: 03/07/25 20:13 Dose: 1 drops Documented By: Admin: 03/07/25 08:55 Dose: 1 drops Documented By: Admin: 03/06/25 22:08 Dose: 1 drops Documented By: Admin: 03/06/25 08:31 Dose: 1 drops Documented By: Admin: 03/05/25 21:20 Dose: 1 drops Documented By: ESSIE Cyclosporine (Cyclosporine (Restasis)) 1 drops OPB BID [facility] Stop: 04/05/25 11:44 Last Admin: 03/10/25 08:45 Dose: 1 drops Documented By: Admin: 03/09/25 20:00 Dose: 1 drops Documented By: [facility] Admin: 03/09/25 08:23 Dose: 1 drops Documented By: Admin: 03/08/25 20:14 Dose: 1 drops Documented By: [facility] Admin: 03/08/25 11:14 Dose: 1 drops Documented By: Admin: 03/07/25 20:14 Dose: 1 drops Documented By: [facility] Admin: 03/07/25 08:54 Dose: 1 drops Documented By: Admin: 03/06/25 22:09 Dose: 1 drops Documented By: Admin: 03/06/25 12:33 Dose: 1 drops Documented By: DONY Enoxaparin Sodium (Enoxaparin Inj 40 Mg/0.4 Ml Syr) 40 mg SQ HS NA Stop: 04/04/25 20:59 Last Admin: 03/09/25 20:13 Dose: 40 mg Documented By: [facility] Admin: 03/08/25 20:13 Dose: 40 mg Documented By: [facility] Admin: 03/07/25 20:14 Dose: 40 mg Documented By: [facility] Admin: 03/06/25 22:01 Dose: 40 mg Documented By: Admin: 03/05/25 21:14 Dose: 40 mg Documented By: RAFAELA Folic Acid (Folic Acid 1 Mg Tab) 1 mg PO QAM NA Stop: 04/05/25 13:59 Last Admin: 03/10/25 08:44 Dose: 1 mg Documented By: Admin: 03/09/25 07:45 Dose: 1 mg Documented By: Admin: 03/08/25 09:13 Dose: 1 mg Documented By: Admin: 03/07/25 08:54 Dose: 1 mg Documented By: Admin: 03/06/25 15:10 Dose: 1 mg Documented By: DONY Melatonin (Melatonin 3 Mg Tab) 3 mg PO HS PRN PRN Reason: Sleep Stop: 04/04/25 16:21 Last Admin: 03/09/25 20:17 Dose: 3 mg Documented By: Admin: 03/09/25 20:16 Dose: 3 mg Documented By: [facility] Admin: 03/08/25 20:12 Dose: 3 mg Documented By: [facility] Admin: 03/07/25 20:19 Dose: 3 mg Documented By: KATHERINE Mirtazapine (Mirtazapine Soltab 15 Mg) 30 mg PO NA Stop: 04/05/25 20:59 Last Admin: 03/09/25 20:18 Dose: 30 mg Documented By: [facility] Admin: 03/08/25 20:12 Dose: 30 mg Documented By: [facility] Admin: 03/07/25 20:16 Dose: 30 mg Documented By: [facility] Admin: 03/06/25 22:08 Dose: 30 mg Documented By: BOOGIE Potassium Chloride (Potassium Chloride Crtab 20 Meq Tabcr) 20 meq PO BID17 NA Stop: 04/07/25 16:59 Last Admin: 03/10/25 08:44 Dose: 20 meq Documented By: Admin: 03/09/25 16:31 Dose: 20 meq Documented By: Admin: 03/09/25 07:45 Dose: 20 meq Documented By: Admin: 03/08/25 17:44 Dose: 20 meq Documented By: Raloxifene HCl (Raloxifene Hcl 60 Mg Tab) 60 mg PO QA NA Stop: 04/05/25 08:59 Last Admin: 03/10/25 08:44 Dose: 60 mg Documented By: TLJasson Admin: 03/09/25 07:44 Dose: 60 mg Documented By: Admin: 03/08/25 09:15 Dose: 60 mg Documented By: Admin: 03/07/25 08:54 Dose: 60 mg Documented By: Admin: 03/06/25 08:30 Dose: 60 mg Documented By: DONY Thiamine HCl (Thiamine Hcl 100 Mg Tab) 100 mg PO QA NA Stop: 04/05/25 13:59 Last Admin: 03/10/25 08:44 Dose: 100 mg Documented By: TLJasson Admin: 03/09/25 07:44 Dose: 100 mg Documented By: Admin: 03/08/25 09:15 Dose: 100 mg Documented By: Admin: 03/07/25 08:54 Dose: 100 mg Documented By: Admin: 03/06/25 15:10 Dose: 100 mg Documented By: DONY Torsemide (Torsemide 20 Mg Tab) 20 mg PO BID17 NA Stop: 04/07/25 10:14 Last Admin: 03/10/25 08:44 Dose: 20 mg Documented By: Admin: 03/09/25 16:32 Dose: 20 mg Documented By: Admin: 03/09/25 08:22 Dose: 20 mg Documented By: Admin: 03/08/25 17:44 Dose: 20 mg Documented By: Admin: 03/08/25 11:12 Dose: 20 mg Documented By: Vitamin D (Cholecalciferol 25 Mcg (1000 Units) Tab) 25 mcg PO DAILY NA Stop: 04/05/25 08:59 Last Admin: 03/10/25 08:44 Dose: 25 mcg Documented By: Admin: 03/09/25 07:42 Dose: 25 mcg Documented By: Admin: 03/08/25 09:14 Dose: 25 mcg Documented By: Admin: 03/07/25 08:54 Dose: 25 mcg Documented By: Admin: 03/06/25 08:31 Dose: 25 mcg Documented By: DONY
[2025-03-11] MEDS: ALBUMIN 25% 25 GM/100 ML VIAL IV ONE (01:41)
[2025-03-11 07:02] LABS: Hematocrit (blood only) 37.6 % (37.0-47.0); Hemoglobin 12.7 g/dl (12.0-16.0); Mean Corpuscular Hemoglobin 30.1 pg (25.0-34.0); Mean Corpuscular Hgb Conc 33.8 g/dL (32.0-36.0); Mean Corpuscular Volume 89.1 fL (80.0-100.0); Mean Platelet Volume 8.5 fL (9.4-12.4); Platelet Count 427 K/uL (130-400); RDW Coefficient of Variation 12.6 % (11.5-14.5); RDW Standard Deviation 41.2 fL (36.4-46.3); Red Blood Count 4.22 M/uL (4.20-5.40); White Blood Count 10.75 K/ul (4.8-10.8)
[2025-03-11 07:17] LABS: Albumin Globulin Ratio 1.9 (0.9-2); Albumin Level 4.4 gm/dl (3.4-5.0); BUN Creatinine Ratio 44.1 (10-20); Bilirubin,Total 0.6 mg/dl (0.2-1.0); Calcium 9.2 mg/dl (8.6-10.3); Globulin 2.3 gm/dl (2.5-4.0); Potassium 3.2 mmol/L (3.5-5.1); Total Protein 6.7 gm/dl (6.0-8.3)
[2025-03-11] MEDS: POTASSIUM CHLORIDE / WTR 10 MEQ/100 ML PLCT IV SCH (08:10)
--- NOTE | 2025-03-11 08:18 | Nephrology Progress Note ---
Date of Service March 11, 2025 Assessment & Plan (1) Hyponatremia: Plan: chronic hyponatremia since we can't tell how long it has been present. her last BMP from 04/2024 almost 1 year ago had na of 135. AM cortisol 03/07 wnl. urine osm 396 urine na 27 and serum osm 243 at admission. She appeared Euvolemic and has true hyponatremia with Abnormally high urine osm in the context of very low serum na of 117. So picture is consistent with SIADH and worsened by excessive fluid intake (around 150 oz /day per report) and low solid food intake; psych meds may also have a role Currently na has normalized w/ appropriate rate of correction Hyponatremia made her [id number] decline worse but she also has underlying issues -cont current management of torsemide 20 mg bid17 >>>increased K to 40 mEq bid in addition to 20 mEq extra given today >> will need to monitor K carefully next few weeks -continue 1.5L FR >>would replete K po moving forward where possible d/t fluid load; would avoid IV albumin unless SBP <85 consistently or/and symptoms for same reason -daily BMP in house ok; suggest Mon/Thurs at d/c -cont to hold urea, salt tabs -Note that SNRI from her admission meds this is likeliest psych med complicator (though not sole clinical ambulette driver) of sodium issues; psych recommends holding then resume as OP w/ OP psych f/u; however plan for now is to stay off of SNRI and taper/stop mirtazipine and abilfy then reassess. PRELIM D/C RECS >recommend 65 gm daily protein intake target (1 gm /kg) >protein shakes do not count toward fluid limit >continue fluid limit 1.5L daily (about 50 oz) >suggest OP neurology evaluation of gait and for neurocognitive testing >twice weekly BMP until seen in neph clinic to be done at facility post d/c >anticipate d/c on torsemiide 20 mg bid16 or bid17 and K 40 mEq bid Spoke w/ pt spouse for 20 minutes updating on her status, path forward re hyponatremia. Care coordinated w/ Dr Gilmore via TText re meds, labs, nutrition; we are in agreement. (2) Hypokalemia: Plan: from diuretics and nutritional given Low intake of Solid food. >>intensified K as above; monitor as above -maintain K of 4 so Na can correct appropriately Admission and Anticipated Discharge Date Admission Date: March 05, 2025 Subjective got albumiin ON for SBP 95; no acute interval clinical events. denies pain except back; no sob, no N. Review of Systems 2 Review of Systems: All systems reviewed & are unremarkable except as noted in Subjective Physical Exam 2 Constitutional: well developed and well nourished Eyes: EOM intact bilaterally ENMT: Mouth: oral mucous membranes not dry Respiratory: normal respiratory effort Auscultation: + diminished lung sounds Cardiovascular: Rate/Rhythm: regular rate and regular rhythm Extremities: n o edema Gastrointestinal (Abdomen): Inspection/Auscultation: normal bowel sounds P ercussion/Palpation: abdomen soft; abdomen nontender Musculoskeletal: Extremities: strength 5/5 throughout Skin: no rashes, warm and dry Psychiatric: Orientation: alert and oriented x 3 Speech: normal rate/rhythm/volume of speech Affect: + flat affect Results & Data Vital Signs (Past 12 Hours) Vital Signs Temp Pulse Pulse Resp BP Pulse Ox O2 Del Method 03/11/25 07:38 109 H 03/11/25 03:00 37.0 C 98 H 20 136/85 94 Room Air 03/10/25 23:26 36.7 C 116 H 20 114/72 92 Room Air 03/10/25 21:44 118 H Laboratory Results 03/11/25 06:14 03/11/25 06:14
[2025-03-11 08:43] VITALS: RESP 17
--- NOTE | 2025-03-11 09:39 | Electrocardiogram Report ---
Test Reason : Blood Pressure : */* mmHG Vent. Rate : 121 BPM Atrial Rate : 121 BPM P-R Int : 126 ms QRS Dur : 82 ms QT Int : 314 ms P-R-T Axes : 35 -16 43 degrees QTcB Int : 445 ms Sinus tachycardia Nonspecific ST and T wave abnormality Abnormal ECG When compared with ECG of 05-Mar-2025 11:32, Criteria for Anterior infarct are no longer Present Criteria for Anterolateral infarct are no longer Present ST now depressed in Lateral leads Confirmed by Saúl James ([id number]) on 03/11/2025 9:39:19 AM Referred By: REFERRED SELF Confirmed By: Saúl James
[2025-03-11] MEDS: POTASSIUM CHLORIDE CRTAB 20 MEQ TABCR PO SCH (09:51)
--- NOTE | 2025-03-11 10:49 | Communication Note ---
Date of Service: March 11, 2025 fOLLOW UP TO TODAY'S NEPH NOTE -BMP q MonThurs until seen in neph clinic -f/u in CKD clinic in 2-3 wks w/ myself or Dr Alcantar >> neph nurse to order BMP, urine osms and urine electrolytes, UA, serum osms, mag, phos to be done no more than 72 hrs before appt -labs, follow up including w/ neuro, diet, meds as per my note from earlier today
[2025-03-11 12:00] VITALS: TEMP 98.2
[2025-03-11 12:01] VITALS: BP 124/76; PULSE 115; O2SAT 93
--- NOTE | 2025-03-11 12:29 | Discharge Summary ---
Discharge Summary Date of Service March 11, 2025 Principal Dx & Hospital Course #1 = Principal Diagnosis (1) Acute hyponatremia: (2) Metabolic encephalopathy: (3) Rapidly progressive weakness: (4) Hyponatremia: (5) Depression: (6) Anxiety: Plan This is a 74-year-old female who has a significant past medical history of prediabetes, senile osteoporosis, major depressive disorder and generalized anxiety disorder who presents to ED secondary to worsening generalized weakness, increased confusion and bladder incontinence over the last 36 hours. 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 There are mild chronic small vessel ischemic changes -mentation improving with treatment of SIADH -suspect underlying component of mild cognitive impairment/dementia vs. 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 Dickson in 2016, initially multiple med changes, but has been stable for several years on current regimen -on Pristiq, abilify, mirtazapine at home -suspect likely cause of SIADH -aripiprazole is associated with SIADH as is desvenlafaxine, mirtazapine less so but possible Plan: -psychiatry consult, appreciate recs -continue aripiprazole dose to 2.5 mg (shared decision making with and patient), continue mirtazapine to 30 mg, desvenlafaxine held at admission, monitor for serotonin withdrawal symptoms, stable at this time #Sinus Tachycardia -ECG sinus rhythm with some ST depressions in lateral leads -troponin minimally elevated on admission -no chest pain Plan: -check echo today I spent a total of 50 minutes in direct patient care, including [id number] time with the patient and/or family, reviewing medical records, ordering and reviewing diagnostic tests, and coordinating care with other healthcare providers. This time includes: history taking, physical examination, medical decision making, counseling, ECG interpretation, imaging interpretation, lab interpretation, orders, and education, excluding time spent in the performance of separately billed services. Notes For Next Care Provider This is a 74-year-old female who has a significant past medical history of prediabetes, senile osteoporosis, major depressive disorder and generalized anxiety disorder who presents to ED secondary to worsening generalized weakness, increased confusion and bladder incontinence over the last 36 hours. On medicine, noted to have SIADH likely secondary to psychiatric medications. Nephrology consulted, regiment titrated to effect and SIADH improved. Psychiatry consulted, recommended medication changes. Shared decision making with patient and , will downtitrate psychiatric medications every week. Next down titration will be of down titrating mirtazapine to 15 mg in one week, then to 7.5mg after another week, then stop. Then stop abilify a week after that. Patient and understand risks and accept risks of downtitration of mediciations. On 03/11/2025 patient accepted to acute rehab, medically stable for transfer. To do: [ ] see above for downtitration of medications [ ] establish with new psychiatrist [ ] 2x weekly blood draws and close monitoring of sodium Medication Changes From Visit -see below Admission HPI Per Admitting Provider This is a 74-year-old female who has a significant past medical history of prediabetes, senile osteoporosis, major depressive disorder and generalized anxiety disorder who presents to ED secondary to worsening generalized weakness, increased confusion and bladder incontinence over the last 36 hours. 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 History is obtained from ED provider, at bedside who is a retired [employer] pediatric surgeon and sister at bedside. It is noted that over the last 18 months patient has had a generalized decline cognition and function. She has been having worsening memory loss, confusion, and general physical decline over the last several months. She has been has noted a crescendo like decline over the last few months. She follows Dr. Dickson for her psych diagnoses. She otherwise does not visit her medical provider other than yearly. Her provides detailed course. She has had no recent illness, change in medication, no recent GI illness. She did see orthopedics on 02/27 due to L foot pain. Imaging showed healing posterior calcan eal stress fracture. There was concern for possible soft tissue swelling and she was started on keflex; however, notes no clear indication of infection. After starting keflex her sx improved. wrote detailed hx regarding changes over the past few years, Approximately 3. She has begun to walk with a shuffling gait at first. She does have some tremor in her hands but tends to occur when using them like buttoning up one of her favorite shirts, that is actually her 's. Her mentation has been becoming markedly worse over the past 6 weeks, but in the past week she struggled to be able to articulate thought and was unable to speak at all. Physically prior to stress fx she was able to ambulate on own, but now having difficulty doing that to the point the is unable to manage her at home. Over the last 36hrs notes progressive decline. At baseline pt can typically ambulate with assistance; however today she was not able to walk at all due to leg weakness. She was unable to get off of couch last night that resulted in her losing control of her bladder. She has not had any bowel incontinence. does not feel she has had a fever, diarrhea, n/v. She eats fairly well. She drinks 8-10 8oz bottles daily, approx. Surgical hx includes L4-5 facets resected for hypertrophic osteophytes - early , Partial face lift in , 1980s mandibular advancement with b/l osteotomies with metal wire Again follows Dr. Dickson with psych since 2016, initially went through a series of med adjustments but she has been stable on her regimen as of late. Discharge Exam Gen: A&O 3 NAD, some sarcopenia noted HEENT: NCAT, EOMI, not icteric. External ears normal. No rhinorrhea. Moist mucous membranes. Neck: Supple, full range of motion, no observable masses, No meningeal sign. Lungs: No Respiratory distress. CV: tachycardic, regular rhythm Abdomen: Soft, nondistended, No rebound tenderness. MSK: No joint swelling, no redness. Noted right antecubital fossa rash, improving Skin: some scattered petechiae Normal color per patient. Neuro: finger to finger touch relatively maintained, no noticeable focal deficits Psych: unremarkable Updated Medication List Medication Instructions Recorded Confirmed Type cholecalciferol (vitamin D3) 25 25 mcg PO DAILY 03/05/25 03/05/25 History mcg (1,000 unit) tablet (Vitamin D3) collagen,hydrolysate 500 mg-biotin 1 cap PO DAILY 03/05/25 03/05/25 History 800 mcg-ascorbic acid 50 mg capsule (Collagen 1500 Plus C) cyclosporine 0.05 % eye drops in a 1 drp ophthalmic (eye) BID 03/05/25 03/05/25 History dropperette loteprednol etabonate 0.5 % eye See Rx Instructions .Route .COMPLEX 03/05/25 03/05/25 History drops,suspension raloxifene 60 mg tablet 60 mg PO QAM 03/05/25 03/05/25 History aripiprazole 5 mg tablet (Abilify) 2.5 mg (1/2 x 5 mg) PO QAM #30 tabs 03/11/25 Rx folic acid 1 mg tablet 1 mg PO QAM #30 tabs 03/11/25 Rx mirtazapine 15 mg disintegrating 30 mg (2 x 15 mg) PO HS #60 tabs 03/11/25 Rx tablet ondansetron 4 mg disintegrating 4 mg PO Q8H PRN nausea and 03/11/25 Rx tablet vomiting 4 days #14 tabs polyethylene glycol 3350 17 gram 17 g PO DAILY PRN constipation #14 03/11/25 Rx oral powder packet (Miralax) ea potassium chloride 20 mEq 40 meq (2 x 20 mEq) PO BID17 #60 03/11/25 Rx tablet,extended release(part/cryst) tabs thiamine HCl (vitamin B1) 100 mg 100 mg PO QAM #30 tabs 03/11/25 Rx tablet torsemide 20 mg tablet 20 mg PO BID17 #60 tabs 03/11/25 Rx Hospital Stay Data Consultations 03/05/25 13:02 ED Decision to Admit Stat 03/05/25 13:59 Consult Nephrology Routine Consult Neurology Routine 03/07/25 06:46 Consult Psychiatry Routine Diagnostic Imagining Performed 03/05/25 11:36 CT head/brain wo con Stat 03/05/25 11:40 CT angio head w con Stat CT angio neck with con Stat 03/05/25 13:39 MR brain wo con Urgent 03/09/25 16:56 CT for pulmonary embolism PE [CT angio chest PE protocol] Urgent Pending Results Patient Have Any Pending Studies at Discharge: Yes Discharge Instructions Given to Patient (Per Discharging Provider) 1. Please follow up with nephrology, psychiatry, PCP. 2. Please follow shared decision making psychiatric medication taper plan. 3. Please follow fluid restriction. Total Time Total Time Spent Total Time Spent (In Minutes): I spent a total of 35 minutes in direct patient care, including [id number] time with the patient and/or family, reviewing medical records, ordering and reviewing diagnostic tests, and coordinating care with other healthcare providers. This time includes: history taking, physical examination, medical decision making, counseling, ECG interpretation, imaging interpretation, lab interpretation, orders, and education, excluding time spent in the performance of separately billed services.
--- NOTE | 2025-03-12 16:23 | Electrocardiogram Report ---
Test Reason : Blood Pressure : */* mmHG Vent. Rate : 118 BPM Atrial Rate : 118 BPM P-R Int : 132 ms QRS Dur : 84 ms QT Int : 336 ms P-R-T Axes : 43 -3 43 degrees QTcB Int : 470 ms Sinus tachycardia Nonspecific ST and T wave abnormality Abnormal ECG When compared with ECG of 08-Mar-2025 14:33, Nonspecific T wave abnormality now evident in Inferior leads Confirmed by Saúl James ([id number]) on 03/12/2025 4:23:20 PM Referred By: REFERRED SELF Confirmed By: Saúl James
== END 2025-03-11 13:00 | DRG 643 ==
LOC: ED 11:10 → SUATTDRO 14:20 → 2S 14:20 → 2N 03-09 22:09